=== PATIENT | male | born 1965 | race Caucasian/White ===

== ENCOUNTER 2016-12-09 11:33 | Emergency (ER) | payer BC, OTHER ==
[2016-12-09 11:42] VITALS: BP 131/93; PULSE 66; RESP 20; TEMP 97.7
--- NOTE | 2016-12-09 12:11 | ED ---
Lower Extremity Injury HPI - General Chief Complaint: Extremity Injury, Lower Stated Complaint: LEFT LEG INJURY Time Seen by Provider: 12/09/16 11:49 Source: patient, RN notes reviewed Mode of arrival: ambulatory Limitations: no limitations - History of Present Illness Initial Comments: This is a 51-year-old male who presents with complaints of left lower extremity injury 3 days ago. He states he was hit by a large piece of metal in the left leg he was seen at [facility] and x-rays were done which were negative for fracture. He is complaining of increased swelling and ecchymosis extending down to his foot. He also has some blistering noted to the anterior lateral inferior aspect of the arias. He was concerned about infection as there was an increased localized temperature in this area. Is some mild Discomfort no shortness of breath fevers chills sweats or other symptoms. 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 - Related Data Home Medications Medication Instructions Recorded Confirmed Acetaminophen Tab [Tylenol Tab] 1,000 mg PO Q6HR PRN 12/09/16 12/09/16 Previous Rx's Medication Instructions Recorded Amoxicillin/Potassium Clav 1 tab PO Q12HR #20 tab 12/09/16 [Augmentin 875-125 Tablet] EPINEPHrine [Epipen 2-Carl] 0.3 mg IM ONCE PRN #1 ml 12/09/16 Allergies Allergy/AdvReac Type Severity Reaction Status Date / Time corn Allergy Severe Swelling Verified 12/09/16 12:27 THROAT peanut Allergy Severe Swelling Verified 12/09/16 12:27 THROAT soy Allergy Unknown Verified 12/09/16 12:27 Review of Systems ROS Statement: Those systems with pertinent positive or pertinent negative responses have been documented in the HPI. ROS Other: All systems not noted in ROS Statement are negative. Past Medical History Past Medical History: No Reported History History of Any Multi-Drug Resistant Organisms: None Reported Past Surgical History: Hernia Repair, Orthopedic Surgery Additional Past Surgical History / Comment(s): Colonoscopy, bilateral knee scopes Past Psychological History: No Psychological Hx Reported Smoking Status: Never smoker Past Alcohol Use History: None Reported Past Drug Use History: None Reported General Exam - General Exam Comments Initial Comments: This is a well-developed well-nourished awake alert oriented times 3 male Limitations: no limitations General appearance: alert, in no apparent distress Head exam: Present: atraumatic, normocephalic, normal inspection Eye exam: Present: normal appearance, PERRL, EOMI. Absent: scleral icterus, conjunctival injection, periorbital swelling Neck exam: Present: normal inspection. Absent: tenderness, meningismus, lymphadenopathy Extremities exam: Present: full ROM, tenderness, normal capillary refill, other (Marked amount of ecchymosis noted over the entire left leg below the knee with edema noted. Minimal Discomfort to palpation there is blistering noted to the anterior lateral aspect of the distal leg with some minimal evidence a localized erythema and increased temperature. Ecchymosis does extend down to the lateral foot this area is nontender. Capillary refills less than 2 seconds) Neurological exam: Present: alert, oriented X3, CN II-XII intact Psychiatric exam: Present: normal affect, normal mood Skin exam: Present: warm, dry. Absent: normal color Course Vital Signs 12/09/16 11:39 Temperature 97.7 F Pulse Rate 66 Respiratory 20 Rate Blood Pressure 131/93 O2 Sat by Pulse 98 Oximetry - Reevaluation(s) Reevaluation #1: 12/09/16 12:11 The patient does have ALLERGIES to peanuts and soy he does state that his EpiPen has run out he will be prescribed a new prescription upon discharge Medical Decision Making - Medical Decision Making I did discuss findings with the patient has . Patient be discharged I did recommend elevation of his left leg at least 3-4 times a day above his heart he will be given an antibiotic prescription to be taken when necessary for any development of infection I also will give him a prescription for EpiPen No. 2. - Radiology Data Radiology results: report reviewed (I did review the ultrasound acute findings.) , image reviewed Disposition Clinical Impression: Contusion of left leg Disposition: HOME SELF-CARE Condition: Good Instructions: Contusion in Adults (ED) Prescriptions: Amoxicillin/Potassium Clav [Augmentin 875-125 Tablet] 1 tab PO Q12HR #20 tab EPINEPHrine [Epipen 2-Carl] 0.3 mg IM ONCE PRN #1 ml PRN Reason: Allergy Symptoms Referrals: Elías Lopez DO [Primary Care Provider] - 1-2 days Decision Time: 13:05
--- NOTE | 2016-12-09 13:03 | US ---
EXAMINATION TYPE: US venous doppler duplex LE LT DATE OF EXAM: 12/09/2016 12:51 PM COMPARISON: NONE CLINICAL HISTORY: Pain. Left leg pain SIDE PERFORMED: Left TECHNIQUE: The lower extremity deep venous system is examined utilizing real time linear array sonog tana with graded compression, doppler sonography and color-flow sonography. VESSELS IMAGED: External Iliac Vein (EIV) Common Femoral Vein Deep Femoral Vein Greater Saphenous Vein * Femoral Vein Popliteal Vein Small Saphenous Vein * Proximal Calf Veins (* superficial vessels) Left Leg: Negative for DVT IMPRESSION: Negative exam. No evidence of deep venous thrombosis in the left leg.
== END 2016-12-09 13:26 | disposition home or self-care (01) ==
LOC: EC 11:33
DX: S80.12XA Contusion of left lower leg, initial encounter (principal); S90.32XA Contusion of left foot, initial encounter; M79.89 Other specified soft tissue disorders; Z91.010 Allergy to peanuts; Z91.018 Allergy to other foods; W20.8XXA Other cause of strike by thrown, projected or falling object, initial encounter; Y92.009 Unspecified place in unspecified non-institutional (private) residence as the place of occurrence of the external cause
CPT/HCPCS: 99283

== ENCOUNTER 2017-03-04 08:51 | Emergency (ER) | payer BC, OTHER ==
[2017-03-04 08:55] VITALS: RESP 18
[2017-03-04] MEDS ORDERED: ASPIRIN 81 MG PO STA (09:10)
[2017-03-04] MEDS ORDERED: KETOROLAC 30 MG/ML 1 ML VIAL IVP STA (09:11)
--- NOTE | 2017-03-04 09:15 | ED ---
Chest Pain HPI - General Chief Complaint: Chest Pain Stated Complaint: CHEST PAIN Time Seen by Provider: 03/04/17 09:00 Source: patient, family, RN notes reviewed Mode of arrival: wheelchair Limitations: no limitations - History of Present Illness Initial Comments: This is a 51-year-old male with a benign past medical history was struck family history of heart disease who states he had the onset this morning around 3 to 3: 30 is sharp left-sided chest pain it was 78/10 severity in his since then about 5/10 in achy in nature. He has no cough fevers chills nausea vomiting sweats or other symptoms he states is persistent right and one area of his chest he points to the left upper anterior chest wall of the costal sternal COSTOCHONDRAL MARGIN. HE IS NOT SMOKER OR DRINKER HE DOES STATE HE WAS DOING SOME LIFTING AT WORK LAST NIGHT BUT NO MORE THAN ABOUT 20 POUNDS. 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 HE DOES STATE THAT AN OLDER BROTHER RECENTLY DID HAVE A HEART ATTACK. NOTHING SEEMS MAKE THE PAIN WORSE OR BETTER AT THIS TIME. MD Complaint: chest pain - Related Data Previous Rx's Medication Instructions Recorded EPINEPHrine [Epipen 2-Carl] 0.3 mg IM ONCE PRN #1 ml 12/09/16 Ibuprofen 800 mg PO Q6HR PRN #20 tablet 03/04/17 Allergies Allergy/AdvReac Type Severity Reaction Status Date / Time corn Allergy Severe Swelling Verified 03/04/17 10:03 THROAT peanut Allergy Severe Swelling Verified 03/04/17 10:03 THROAT soy Allergy Unknown Verified 03/04/17 10:03 Review of Systems ROS Statement: Those systems with pertinent positive or pertinent negative responses have been documented in the HPI. ROS Other: All systems not noted in ROS Statement are negative. EKG Findings - EKG Results: EKG: interpreted by ERMD, WNL, sinus rhythm, normal axis, normal QRS, normal ST/ T, no acute changes (Normal sinus rhythm a 61 appear of 01 58 QRS 96 QT since QTC of 14/412 st-t wave changes.) Past Medical History Past Medical History: No Reported History History of Any Multi-Drug Resistant Organisms: None Reported Past Surgical History: Hernia Repair, Orthopedic Surgery Additional Past Surgical History / Comment(s): Colonoscopy, bilateral knee scopes Past Psychological History: No Psychological Hx Reported Smoking Status: Never smoker Past Alcohol Use History: None Reported Past Drug Use History: None Reported General Exam - General Exam Comments Initial Comments: This is a well-developed well-nourished awake alert oriented 3 male Limitations: no limitations General appearance: alert, in no apparent distress Head exam: Present: atraumatic, normocephalic, normal inspection Eye exam: Present: normal appearance, PERRL, EOMI. Absent: scleral icterus, conjunctival injection, periorbital swelling ENT exam: Present: normal exam, mucous membranes moist Neck exam: Present: normal inspection. Absent: tenderness, meningismus, lymphadenopathy Respiratory exam: Present: normal lung sounds bilaterally, chest wall tenderness (Reproducible tenderness palpation along the left upper costochondral costal sternal angle this does seem to reproduce the patient's chief complaint). Absent: respiratory distress, wheezes, rales, rhonchi, stridor Cardiovascular Exam: Present: regular rate, normal rhythm, normal heart sounds. Absent: systolic murmur, diastolic murmur, rubs, gallop, clicks GI/Abdominal exam: Present: soft, normal bowel sounds. Absent: distended, tenderness, guarding, rebound, rigid Extremities exam: Present: normal inspection, full ROM, normal capillary refill. Absent: tenderness, pedal edema, joint swelling, calf tenderness Back exam: Present: normal inspection Neurological exam: Present: alert, oriented X3, CN II-XII intact Psychiatric exam: Present: normal affect, normal mood Skin exam: Present: warm, dry, intact, normal color. Absent: rash Course Vital Signs 03/04/17 03/04/17 08:52 09:55 Temperature 97.2 F L Pulse Rate 68 55 L Respiratory 18 18 Rate Blood Pressure 146/92 121/77 O2 Sat by Pulse 98 100 Oximetry Chest Pain MDM - MDM I did reevaluate patient several occasions he was showing improved. X-rays are negative for acute findings. The current presentation is consistent with costochondritis she will be discharged she will follow-up with his doctor did recommend an outpatient stress test due to his family history. Disposition Clinical Impression: Costalchondritis, Chest wall syndrome Disposition: HOME SELF-CARE Condition: Good Instructions: Costochondritis (ED) Prescriptions: Ibuprofen 800 mg PO Q6HR PRN #20 tablet PRN Reason: Pain Referrals: Elías Lopez DO [Primary Care Provider] - 1-2 days
[2017-03-04 09:25] LABS: Basophils % (A) 0 %; CH 33.7; CHCM 34.9; Eosinophils # (A) 0.1 k/uL (0-0.7); Eosinophils % (A) 2 %; HCT 43.6 % (39.0-53.0); HDW 2.62; HGB 14.8 gm/dL (13.0-17.5); Luc # (Auto) 0.08; Luc % (Auto) 2; Lymphocytes # (A) 1.2 k/uL (1.0-4.8); Lymphocytes % (A) 30 %; MCH 32.9 pg (25.0-35.0); MCHC 33.9 g/dL (31.0-37.0); MCV 96.9 fL (80.0-100.0); Mean Platelet Volume 7.6; Monocytes # (A) 0.3 k/uL (0-1.0); Monocytes % (A) 9 %; Neutrophils # (A) 2.2 k/uL (1.3-7.7); Neutrophils % (A) 57 %; RDW 13.8 % (11.5-15.5); WBC 3.9 k/uL (3.8-10.6); WBC (Perox) 4.11
[2017-03-04 09:34] LABS: ALT 31 U/L (21-72); AST 21 U/L (17-59); Alkaline Phosphatase 64 U/L (38-126); Anion Gap 10 mmol/L; Blood Urea Nitrogen 20 mg/dL (9-20); Calcium 9.1 mg/dL (8.4-10.2); Carbon Dioxide 23 mmol/L (22-30); Chloride 108 mmol/L (98-107); Glucose 99 mg/dL (74-99); Magnesium 2.1 mg/dL (1.6-2.3); Non-African American GFR(MDRD) >60 (>60 ml/min/1.73 sqM); Potassium 4.6 mmol/L (3.5-5.1); Sodium 141 mmol/L (137-145); Total Bilirubin 0.4 mg/dL (0.2-1.3); Total Protein 6.9 g/dL (6.3-8.2)
--- NOTE | 2017-03-04 09:38 | XR ---
EXAMINATION TYPE: XR chest 2V DATE OF EXAM: 03/04/2017 HISTORY: Chest Pain. REFERENCE: NONE. FINDINGS: There is minimal atelectasis at the left lung base. The lungs are otherwise clear. Pleural spaces are clear. The heart is not enlarged. IMPRESSION: PLATELIKE ATELECTASIS, LEFT LUNG BASE.
[2017-03-04 09:44] LABS: Creatine Kinase 82 U/L (55-170)
[2017-03-04 09:57] LABS: Troponin I <0.012 ng/mL (0.000-0.034)
[2017-03-04 10:00] LABS: INR 1.1 (<1.2); Partial Thromboplastin Time 24.9 sec (22.0-30.0); Prothrombin Time 11.3 sec (9.0-12.0)
[2017-03-04 10:52] VITALS: BP 118/82; PULSE 54
[2017-03-04 10:56] VITALS: TEMP 98
== END 2017-03-04 10:56 | disposition home or self-care (01) ==
LOC: EC 08:51
DX: M94.0 Chondrocostal junction syndrome [Tietze] (principal); R07.1 Chest pain on breathing; Z91.010 Allergy to peanuts; Z91.018 Allergy to other foods
CPT/HCPCS: 36415; 93005; 85379; 83880; 80053; 82550; 82553; 83735; 84484; 85025; 85610; 85730; 71020; 99285; 96374; J1885

== ENCOUNTER 2018-08-14 12:19 | Emergency (ER) | payer BC, OTHER ==
[2018-08-14 12:29] VITALS: BP 140/86; PULSE 62; RESP 18; TEMP 98.2
[2018-08-14] MEDS ORDERED: SODIUM CHLORIDE 0.9% 500 ML 500 ML IV STA ×2 (13:05→15:17)
--- NOTE | 2018-08-14 13:10 | ED ---
General Adult HPI - General Chief complaint: Neuro Symptoms/Deficit Stated complaint: Face numbness/blurred vision Time Seen by Provider: 08/14/18 12:52 Source: patient, RN notes reviewed Mode of arrival: ambulatory Limitations: no limitations - History of Present Illness Initial comments: 52-year-old with only significant past medical history being severe ALLERGIES to Court peanuts and soy presents to the emergency department for a chief complaint of right-sided facial numbness. Patient states this has been going on for about 1.5 days. This started on the evening of August 12. Patient thought it was related to ALLERGIES as he has had facial numbness from ALLERGIES before. However when he went to the clinic today they became concerned. Patient denies noticing any weakness in the face. Denies any pain in the right ear preceding this. Denies any weakness in the arms or legs. No difficulty walking. No previous neurologic events. No cardiac events. Patient has no other complaints at this time including shortness of breath, chest pain, abdominal pain, nausea or vomiting, headache, or visual changes. - Related Data Home Medications Medication Instructions Recorded Confirmed Acetaminophen Tab [Tylenol Tab] 1,000 mg PO Q6HR PRN 08/14/18 08/14/18 Loratadine [Claritin] 10 mg PO DAILY PRN 08/14/18 08/14/18 Previous Rx's Medication Instructions Recorded EPINEPHrine [Epipen 2-Carl] 0.3 mg IM ONCE PRN #1 ml 12/09/16 Allergies Allergy/AdvReac Type Severity Reaction Status Date / Time corn Allergy Severe Swelling Verified 08/14/18 12:50 THROAT peanut Allergy Severe Swelling Verified 08/14/18 12:50 THROAT soy Allergy Unknown Verified 08/14/18 12:50 Review of Systems ROS Statement: Those systems with pertinent positive or pertinent negative responses have been documented in the HPI. ROS Other: All systems not noted in ROS Statement are negative. Past Medical History Past Medical History: No Reported History History of Any Multi-Drug Resistant Organisms: None Reported Past Surgical History: Hernia Repair, Orthopedic Surgery Additional Past Surgical History / Comment(s): Colonoscopy, bilateral knee scopes Past Psychological History: No Psychological Hx Reported Smoking Status: Never smoker Past Alcohol Use History: None Reported Past Drug Use History: None Reported General Exam Limitations: no limitations General appearance: alert, in no apparent distress Head exam: Present: atraumatic, normocephalic, normal inspection Eye exam: Present: normal appearance, PERRL, EOMI. Absent: scleral icterus, co njunctival injection, periorbital swelling ENT exam: Present: normal exam, normal oropharynx, mucous membranes moist, TM's normal bilaterally, normal external ear exam Neck exam: Present: normal inspection, full ROM. Absent: tenderness, meningismus, lymphadenopathy Respiratory exam: Present: normal lung sounds bilaterally. Absent: respiratory distress, wheezes, rales, rhonchi, stridor Cardiovascular Exam: Present: regular rate, normal rhythm, normal heart sounds. Absent: systolic murmur, diastolic murmur, rubs, gallop, clicks Neurological exam: Present: alert, oriented X3, CN II-XII intact Expanded Patient oriented to: Present: person, place, time Speech: Present: fluid speech Cranial nerves: EOM's Intact: Normal, Tongue Deviation: Normal, Nystagmus: Normal, Facial Sensation: Abnormal Right, Facial Palsy with Forehead Movement: Normal (flatting of nasolabial fold) Cerebellar function: Romberg: Normal Upper motor neuron: Pronator Drift: Normal Sensory exam: Upper Extremity Light Touch: Normal, Upper Extremity Pin Prick: Normal, Lower Extremity Light Touch: Normal, Lower Extremity Pin Prick: Normal Motor strength exam: RUE: 5, LUE: 5, RLE: 5, LLE: 5 Eye Response: (4) open spontaneously Motor Response: (6) obeys commands Verbal Response: (5) oriented Baker Total: 15 Psychiatric exam: Present: normal affect, normal mood Course Vital Signs 08/14/18 12:25 Temperature 98.2 F Pulse Rate 62 Respiratory 18 Rate Blood Pressure 140/86 O2 Sat by Pulse 97 Oximetry EKG Findings - EKG Comments: EKG Findings:: Ventricular rate 60, unusual P axis, [place] interval 158, QRS duration 90, QTC 392 Medical Decision Making - Medical Decision Making 52-year-old male without any significant past medical history presents to the emergency department for a chief complaint of right-sided facial numbness. Patient states this has been going on for about 1.5 days and started the evening of August 12. Patient states he has had similar symptoms before from severe ALLERGIES but states that this has lasted much longer than normal. On exam patient does have decreased sensation to light touch and pinprick sensation of the face. Patient also has flattening of the nasolabial fold. Patient has spared motor distribution of the forehead. NIH 2 due to decreased facial sensation and flattened nasolabial fold. EKG shows ventricular rate of 60 with a sinus rhythm. CBC CMP unremarkable. Urine negative. Troponin negative. Chest x-ray shows no acute process. CT shows a normal brain. CTA head and neck shows no significant flow-limiting stenosis. Normal [place]. As there is concern for neuro deficit and strokelike symptoms patient will be transferred for neurologic management. This was accepted by Dr. Mendoza. - Lab Data Result diagrams: 08/14/18 13:40 08/14/18 13:40 Lab Results 08/14/18 08/14/18 08/14/18 Range/Units 13:40 13:40 13:40 WBC 4.2 (3.8-10.6) k/uL RBC 4.54 (4.30-5.90) m/uL Hgb 15.0 (13.0-17.5) gm/dL Hct 43.6 (39.0-53.0) % MCV 95.9 (80.0-100.0) fL MCH 33.1 (25.0-35.0) pg MCHC 34.5 (31.0-37.0) g/dL RDW 12.5 (11.5-15.5) % Plt Count 203 (150-450) k/uL Neutrophils % 69 % Lymphocytes % 21 % Monocytes % 6 % Eosinophils % 2 % Basophils % 1 % Neutrophils # 2.9 (1.3-7.7) k/uL Lymphocytes # 0.9 L (1.0-4.8) k/uL Monocytes # 0.2 (0-1.0) k/uL Eosinophils # 0.1 (0-0.7) k/uL Basophils # 0.0 (0-0.2) k/uL PT 11.0 (9.0-12.0) sec INR 1.0 (<1.2) APTT 24.3 (22.0-30.0) sec Sodium 140 (137-145) mmol/L Potassium 4.3 (3.5-5.1) mmol/L Chloride 108 H (98-107) mmol/L Carbon Dioxide 27 (22-30) mmol/L Anion Gap 5 mmol/L BUN 21 H (9-20) mg/dL Creatinine 0.71 (0.66-1.25) mg/dL Est GFR (CKD-EPI)AfAm >90 (>60 ml/min/1.73 sqM) Est GFR (CKD-EPI)NonAf >90 (>60 ml/min/1.73 sqM) Glucose 88 (74-99) mg/dL Calcium 9.3 (8.4-10.2) mg/dL Total Bilirubin 0.5 (0.2-1.3) mg/dL AST 17 (17-59) U/L ALT 27 (21-72) U/L Alkaline Phosphatase 54 (38-126) U/L Troponin I (0.000-0.034) ng/mL Total Protein 6.2 L (6.3-8.2) g/dL Albumin 4.0 (3.5-5.0) g/dL Urine Color Urine Appearance (Clear) Urine pH (5.0-8.0) Ur Specific [place] (1.001-1.035) Urine Protein (Negative) Urine Glucose (UA) (Negative) Urine Ketones (Negative) Urine Blood (Negative) Urine Nitrite (Negative) Urine Bilirubin (Negative) Urine Urobilinogen (<2.0) mg/dL Ur Leukocyte Esterase (Negative) Amorphous Sediment (None) /hpf Urine Mucus (None) /hpf 08/14/18 08/14/18 Range/Units 13:40 13:40 WBC (3.8-10.6) k/uL RBC (4.30-5.90) m/uL Hgb (13.0-17.5) gm/dL Hct (39.0-53.0) % MCV (80.0-100.0) fL MCH (25.0-35.0) pg MCHC (31.0-37.0) g/dL RDW (11.5-15.5) % Plt Count (150-450) k/uL Neutrophils % % Lymphocytes % % Monocytes % % Eosinophils % % Basophils % % Neutrophils # (1.3-7.7) k/uL Lymphocytes # (1.0-4.8) k/uL Monocytes # (0-1.0) k/uL Eosinophils # (0-0.7) k/uL Basophils # (0-0.2) k/uL PT (9.0-12.0) sec INR (<1.2) APTT (22.0-30.0) sec Sodium (137-145) mmol/L Potassium (3.5-5.1) mmol/L Chloride (98-107) mmol/L Carbon Dioxide (22-30) mmol/L Anion Gap mmol/L BUN (9-20) mg/dL Creatinine (0.66-1.25) mg/dL Est GFR (CKD-EPI)AfAm (>60 ml/min/1.73 sqM) Est GFR (CKD-EPI)NonAf (>60 ml/min/1.73 sqM) Glucose (74-99) mg/dL Calcium (8.4-10.2) mg/dL Total Bilirubin (0.2-1.3) mg/dL AST (17-59) U/L ALT (21-72) U/L Alkaline Phosphatase (38-126) U/L Troponin I <0.012 (0.000-0.034) ng/mL Total Protein (6.3-8.2) g/dL Albumin (3.5-5.0) g/dL Urine Color Yellow Urine Appearance Cloudy (Clear) Urine pH 6.5 (5.0-8.0) Ur Specific [place] 1.024 (1.001-1.035) Urine Protein Negative (Negative) Urine Glucose (UA) Negative (Negative) Urine Ketones Negative (Negative) Urine Blood Negative (Negative) Urine Nitrite Negative (Negative) Urine Bilirubin Negative (Negative) Urine Urobilinogen 2.0 (<2.0) mg/dL Ur Leukocyte Esterase Negative (Negative) Amorphous Sediment Few H (None) /hpf Urine Mucus Rare H (None) /hpf - Radiology Data Radiology results: report reviewed, image reviewed Chest x-ray shows no acute cardiopulmonary process. Disposition Clinical Impression: Focal neurological deficit Disposition: OTHER INSTITUTION NOT DEFINED Condition: Fair Is patient prescribed a controlled substance at d/c from ED?: No Referrals: Elías Lopez DO [Primary Care Provider] - 1-2 days Time of Disposition: 15:22 - Out of Hospital Transfer - Req. Specs Out of Hospital Transfer - Requested Specifics: Other Emergency Center ([facility]
[2018-08-14 14:04] LABS: Basophils % (A) 1 %; Eosinophils # (A) 0.1 k/uL (0-0.7); Eosinophils % (A) 2 %; HCT 43.6 % (39.0-53.0); Lymphocytes # (A) 0.9 k/uL (1.0-4.8); Lymphocytes % (A) 21 %; MCH 33.1 pg (25.0-35.0); MCHC 34.5 g/dL (31.0-37.0); MCV 95.9 fL (80.0-100.0); Monocytes # (A) 0.2 k/uL (0-1.0); Monocytes % (A) 6 %; Neutrophils # (A) 2.9 k/uL (1.3-7.7); Neutrophils % (A) 69 %; Platelet Count 203 k/uL (150-450); RBC 4.54 m/uL (4.30-5.90); RDW 12.5 % (11.5-15.5); WBC 4.2 k/uL (3.8-10.6)
[2018-08-14 14:09] LABS: ALT 27 U/L (21-72); AST 17 U/L (17-59); Alkaline Phosphatase 54 U/L (38-126); Anion Gap 5 mmol/L; Blood Urea Nitrogen 21 mg/dL (9-20); Calcium 9.3 mg/dL (8.4-10.2); Carbon Dioxide 27 mmol/L (22-30); Chloride 108 mmol/L (98-107); Glucose 88 mg/dL (74-99); Potassium 4.3 mmol/L (3.5-5.1); Sodium 140 mmol/L (137-145); Total Bilirubin 0.5 mg/dL (0.2-1.3); Total Protein 6.2 g/dL (6.3-8.2)
[2018-08-14 14:13] LABS: Partial Thromboplastin Time 24.3 sec (22.0-30.0)
[2018-08-14 14:19] LABS: Amorphous Sediment,Urine Few /hpf; Appearance,Urine Cloudy (Clear); Bilirubin,Urine Negative (Negative); Blood,Urine Negative (Negative); Color,Urine Yellow; Glucose,Urine (UA) Negative (Negative); Ketones,Urine Negative (Negative); Leukocyte Esterase,Urine Negative (Negative); Mucus,Urine Rare /hpf; Nitrite,Urine Negative (Negative); PH, Urine 6.5 (5.0-8.0); Protein,Urine Negative (Negative); Specific Gravity,Urine 1.024 (1.001-1.035)
--- NOTE | 2018-08-14 14:29 | XR ---
EXAMINATION TYPE: XR chest 2V DATE OF EXAM: 08/14/2018 COMPARISON: 03/04/2017 HISTORY: Altered mental status TECHNIQUE: Frontal and lateral views of the chest are obtained. FINDINGS: There is improved aeration of the left lung base in comparison to the prior. There is no f ocal air space opacity, pleural effusion, or pneumothorax seen. The cardiac silhouette size is withi n normal limits. The osseous structures are intact. IMPRESSION: Resolved left basilar subsegmental atelectasis. No acute cardiopulmonary process.
--- NOTE | 2018-08-14 14:31 | CT ---
EXAMINATION TYPE: CT brain wo con DATE OF EXAM: 08/14/2018 COMPARISON: None INDICATION: Rt facial numbness for 2 days DLP: 1036 mGycm, Automated exposure control for dose reduction was used. CONTRAST: None CT of the brain is performed utilizing 3 mm thick sections through the posterior fossa and 3 mm thick sections through the remaining calvarium. Study is performed within 24 hours of arrival to the hosp [facility]. No abnormal hyperdensity is present to suggest an acute intracranial hemorrhage. No mass lesion is evident. No acute infarcts are evident. Ventricles and sulci are appropriate for the patient age. Paranasal sinuses and mastoid air cells within the [id number] are clear. IMPRESSIONS: 1. Normal CT Brain
--- NOTE | 2018-08-14 14:37 | CT ---
EXAMINATION TYPE: CT angio head neck DATE OF EXAM: 08/14/2018 HISTORY: Rt facial numbness for 2 days COMPARISON: None CT DLP: 433.4 mGycm. Automated Exposure Control for Dose Reduction was Utilized. TECHNIQUE: CTA scan of the neck is performed with IV Contrast, patient injected with 65 mL of Isovue 370, axial images are obtained, coronal and sagittal reformatted images are reviewed. Three-D recons tructed images are created on an independent workstation and reviewed. FINDINGS: Carotid/Vascular Structures: Carotid bifurcations appear normal without significant stenosis. No foca l narrowing is evident. Vertebral arteries are codominant. No significant flow-limiting stenosis is e vident. The left and right common carotid arteries may have a common origin within the innominate. [place]: Internal carotid arteries bifurcate normally into A1 and M1 segments. The anterior communicating artery appears patent. A2 segments are unremarkable. Middle cerebral artery branches ap pear unremarkable bilaterally. Posterior communicating arteries are patent. Posterior cerebral arteri es appear normal. Vertebral basilar system appears normal. IMPRESSION: 1. No significant flow-limiting stenosis bilateral carotid bifurcations. 2. Normal [place].
== END 2018-08-14 16:13 | disposition other institution (70) ==
LOC: EC 12:19
DX: R29.818 Other symptoms and signs involving the nervous system (principal); R20.0 Anesthesia of skin; Z91.018 Allergy to other foods; Z91.010 Allergy to peanuts
CPT/HCPCS: 36415; 93005; 80053; 84484; 85025; 85610; 85730; 81001; 71046; 70496; 70450; 70498; 99285; 96360; 96361; Q9967

== ENCOUNTER → 2018-11-14 | Outpatient (CLI) | payer OTHER ==
--- NOTE | 2018-11-14 08:42 | US ---
EXAMINATION TYPE: US bladder DATE OF EXAM: 11/14/2018 COMPARISON: NONE CLINICAL HISTORY: R35.0 urinary frequency. EXAM MEASUREMENTS: Post Void Residual Volume: 16.2 mL Color Doppler performed to assess ureteral jets. Bilateral Jets seen: Yes Normal Post Void Residual (less than 50ml): Yes Enlarged heterogenous prostate visualized measuring 4.6 cm. IMPRESSION: Enlarged and heterogenous prostate gland impressing upon the urinary bladder. No abnorma l post void residual is seen within the urinary bladder.
== END | disposition home or self-care (01) ==
LOC: RADUSWWP 07:13
PROVIDERS: ATTEND Family Medicine
DX: N40.1 Benign prostatic hyperplasia with lower urinary tract symptoms (principal); R35.0 Frequency of micturition
CPT/HCPCS: 76857

== ENCOUNTER → 2018-12-16 | Outpatient (CLI) | payer OTHER ==
--- NOTE | 2018-12-17 13:25 | MR ---
EXAMINATION TYPE: MR brain wo/w con DATE OF EXAM: 12/16/2018 COMPARISON: CT brain dated 08/14/[address] [facility] head and neck dated 08/14/2018 HISTORY: diplopia TECHNIQUE: Multiplanar, multisequence images of the brain and brainstem is performed without and with IV contras t, utilizing 7.5 mL intravenous Gadavist . FINDINGS: Diffusion weighted images demonstrate no evidence of a recent infarct or other diffusion ab normality. There is no extra-axial fluid collection. There are few punctate scattered foci of T2/FLA IR hyperintensity within the deep white matter. These are typically sequela of chronic microangiopath y. The ventricular system and cisternal spaces are normal in size and appearance. The brain volume i s age appropriate. 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 Pituitary gland is unremarkable. No impression on the optic chiasm. No orbital nerve enhancement. M ild nasal turbinate mucosal hypertrophy of the left middle and inferior nasal turbinates although no obstruction is seen. Midline structures demonstrate normal morphology. The craniocervical junction a ppears within normal limits. Post contrast images demonstrate no abnormal enhancement. The dural maynor ous sinuses appear patent. Scant amount of mucosal thickening is seen within the posterior left ethmo id sinuses. The remaining visualized sinuses are clear and the globes are intact. The globes appear elongated in transverse dimension bilaterally having an atypical ovoid shape rather than a normal rounded configuration. No abnormal enhancement or intra-abdominal mass. No significant perineural fluid along the optic nerves. IMPRESSION: 1. Atypical transversely elongated shape of the bilateral globes appearing ovoid in this patient with diplopia. Ophthalmologic exam is recommended. No focal staphyloma or intra-abdominal mass is seen. 2. Few scattered foci of nonspecific white matter change in the deep white matter, most commonly on t he basis of microangiopathy. These are not in a typical distribution of demyelinating disease. 3. No abnormal intracranial enhancement, midline shift, nor acute territorial infarct.
== END | disposition home or self-care (01) ==
LOC: RADMRIMAIN 11:56
PROVIDERS: ATTEND Family Medicine
DX: H53.2 Diplopia (principal); I73.9 Peripheral vascular disease, unspecified; R90.89 Other abnormal findings on diagnostic imaging of central nervous system
CPT/HCPCS: 70553; A9585

== ENCOUNTER → 2019-07-09 | Outpatient (CLI) | payer OTHER ==
--- NOTE | 2019-07-09 11:55 | XR ---
Lumbar spine HISTORY: Low back pain 3 views of lumbar spine Lumbar vertebral bodies show preserved height, alignment, and bone mineralization. There is multileve l spondylosis. Loss of disc height present at L3-4, L4-5. Sclerosis present in the posterior elements of the posterior lumbar sacral junction. IMPRESSION: Degenerative disc disease and facet arthropathy.
== END | disposition home or self-care (01) ==
LOC: RADXRMAIN 10:33
PROVIDERS: ATTEND Family Medicine
DX: M51.36 Other intervertebral disc degeneration, lumbar region (principal); M47.816 Spondylosis without myelopathy or radiculopathy, lumbar region
CPT/HCPCS: 72100

== ENCOUNTER → 2019-09-18 | Outpatient (CLI) | payer OTHER ==
--- NOTE | 2019-09-18 15:52 | CT ---
EXAMINATION TYPE: CT pelvis w con DATE OF EXAM: 09/18/2019 COMPARISON: NONE HISTORY: 53-year-old male left side femoral hernia, history of prior hernias TECHNIQUE: Contiguous axial scanning of the pelvis following administration of 100 ml Isovue 300 IV c ontrast. Delayed images through the bladder and coronal/sagittal reconstructions performed. CT DLP: 462.1 mGycm Automated exposure control for dose reduction was used. FINDINGS: Visualized portion of the inferior right liver lobe, portion of the gallbladder, lower poles of the k idneys show no gross abnormality. No dilated small bowel, free fluid, or free air. In the mid and lower abdomen and pelvis, no lymphadenopathy is identified. Normal appendix. Mild overall stool burden. There is proximal to mid sigmoid diverticulosis noted. Mi ld circumferential thickening along the proximal sigmoid colon without surrounding inflammation. Mild circumferential bladder wall thickening. Prostate gland measures 4.7 cm wide with central calcif ications. No inguinal or femoral canal hernia is identified on this nondynamic scan. Phleboliths in the left side of the pelvis. No abnormal fluid collection in the pelvis. Bones: No osseous destructive process. IMPRESSION: 1. NO FEMORAL CANAL OR INGUINAL HERNIA IDENTIFIED ON THIS NONDYNAMIC EXAM. 2. MILD PROSTATOMEGALY AT 4.7 CM WIDE. MILD CIRCUMFERENTIAL BLADDER WALL THICKENING COULD REPRESENT C HRONIC BLADDER WALL HYPERTROPHY OR CYSTITIS. CLINICALLY CORRELATE.
== END | disposition home or self-care (01) ==
LOC: RADCTMAIN 12:38
PROVIDERS: ATTEND Family Medicine
DX: N40.0 Benign prostatic hyperplasia without lower urinary tract symptoms (principal); N32.89 Other specified disorders of bladder
CPT/HCPCS: 72193

== ENCOUNTER → 2020-10-12 | Outpatient (CLI) | payer OTHER ==
[2020-10-12 16:53] LABS: Basophils % (A) 0 %; Eosinophils # (A) 0.2 k/uL (0-0.7); Eosinophils % (A) 4 %; HCT 41.7 % (39.0-53.0); Lymphocytes # (A) 1.4 k/uL (1.0-4.8); Lymphocytes % (A) 26 %; MCH 33.9 pg (25.0-35.0); MCHC 36.1 g/dL (31.0-37.0); MCV 93.9 fL (80.0-100.0); Mean Platelet Volume 7.1; Monocytes # (A) 0.4 k/uL (0-1.0); Monocytes % (A) 7 %; Neutrophils # (A) 3.3 k/uL (1.3-7.7); Neutrophils % (A) 61 %; Platelet Count 234 k/uL (150-450); RBC 4.44 m/uL (4.30-5.90); RDW 12.2 % (11.5-15.5); WBC 5.4 k/uL (3.8-10.6)
[2020-10-12 17:08] LABS: Potassium 4.1 mmol/L (3.5-5.1)
== END | disposition home or self-care (01) ==
LOC: LABPAT 16:22
PROVIDERS: ATTEND Orthopaedic Surgery
DX: Z01.818 Encounter for other preprocedural examination (principal); M23.92 Unspecified internal derangement of left knee; R94.31 Abnormal electrocardiogram [ECG] [EKG]; R00.1 Bradycardia, unspecified
CPT/HCPCS: 36415; 80051; 85025; 93005

== ENCOUNTER 2020-10-21 12:09 | Day surgery (SDC) | payer OTHER ==
[2020-10-20 08:45] VITALS: BMI 26.1
--- NOTE | 2020-10-20 20:42 | HP ---
HISTORY AND PHYSICAL DATE OF SURGERY: 10/21/2020 Albert Yarbrough is a 54-year-old gentleman seen with progressive left knee pain. After having treatment options discussed, he elected to proceed with arthroscopy. Consent regarding the procedure was obtained. PAST MEDICAL HISTORY: Noncontributory. PAST SURGICAL HISTORY: Noncontributory. DAILY MEDICATIONS: None. ALLERGIES: None. SOCIAL HISTORY: Denies tobacco use. PHYSICAL EVALUATION OF THE LEFT KNEE: Range of motion 0 to 130. Mild effusion. Tenderness medial joint line. Positive medial Henrik's. +1 Brandi's, good endpoint. Collateral ligaments stable. Distal neurovascular exam intact. RADIOGRAPHS: Radiographs of his left knee reveal mild osteoarthritis. MRI left knee revealed a partial ACL tear, abnormal signal in the medial meniscus and joint effusion. IMPRESSION: Internal derangement left knee with partial ACL tear and possible meniscal tear. PLAN: Left knee arthroscopy with debridement, partial ACL tear and possible partial meniscectomy. MMODL / IJN: [id number] /
[~2020-10-21 12:09] MED LIST: DEXAMETHASONE SOD PHOSPHATE 4 MG/ML 1 ML VIAL IV ONE; LACTATED RINGERS 1,000 ML IV SCH; LIDOCAINE 1% (10MG/ML) FOR IV START INTRADERMA PRN
[2020-10-21] MEDS ORDERED: ONDANSETRON 4 MG/2 ML VIAL ONE (12:28)
[2020-10-21] MEDS: ONDANSETRON 4 MG/2 ML VIAL IVP ONE ×2 (12:37→14:51)
[2020-10-21] MEDS ORDERED: PROPOFOL 10 MG/ML 20 ML VIAL IV ONE (12:54)
[2020-10-21] MEDS ORDERED: MIDAZOLAM 2 MG/2 ML VIAL ONE (12:54)
[2020-10-21] MEDS ORDERED: LIDOCAINE 1% INJ 10MG/ML (20 ML MDV) ONE (12:54)
[2020-10-21] MEDS ORDERED: BUPIVACAINE (PF) 0.25% 30 ML VIAL SQ ONE ×2 (12:54→13:28)
[2020-10-21] MEDS ORDERED: fentaNYL (PF) 50 MCG/ML 2 ML AMP ONE (12:54)
[2020-10-21] MEDS ORDERED: KETOROLAC 15 MG/ML 1 ML VIAL ONE (12:54)
[2020-10-21 13:38] VITALS: TEMP 97
--- NOTE | 2020-10-21 13:40 | P.OP ---
Date of Procedure: 10/21/20 Preoperative Diagnosis: Internal derangement left knee Postoperative Diagnosis: 1. Tear medial meniscus left knee 2. ACL tear left knee 3. Reactive synovitis medial, lateral and suprapatellar compartments left knee Procedure(s) Performed: 1. Arthroscopic partial medial meniscectomy left knee 2. Arthroscopic debridement complete ACL tear left knee 3. Arthroscopic partial synovectomy medial, lateral and suprapatellar compartments left knee Anesthesia: RUIZA, local Surgeon: Ashish Johnston Estimated Blood Loss (ml): 7 Pathology: none sent Condition: stable Disposition: PACU Indications for Procedure: 54-year-old gentleman seen with progressive left knee pain. After having treatment options discussed, he elected to proceed with arthroscopy. Operative Findings: See description of procedure Description of Procedure: Patient was taken to the operative suite. Patient underwent a general anesthetic by the department of anesthesia. Patient was given preoperative antibiotics. The left lower extremity was placed in a well-padded arthroscopic leg briones. The left leg was prepped and draped in the normal sterile orthopedic fashion. A lateral parapatellar and suprapatellar incision was made. Trochars were inserted. Arthroscopy was initiated. Suprapatellar pouch revealed diffuse thick reactive synovitis. The patellofemoral joint appeared appeared to articulate congruently. There was no chondromalacia present. The scope was guided into the medial gutter. No loose bodies or plica were identified. The scope was then guided into the medial compartment. A medial parapatellar incision was made. Trocar inserted followed by probe. There was a tear involving the posterior horn of the medial meniscus. There was mild grade 1 chondromalacia of the medial compartment. There was thick reactive synovitis anteriorly. I performed a partial medial meniscectomy getting down to stable meniscal tissue. I performed a partial synovectomy decompressing the thick reactive synovitis. The shaver was removed. There was good decompression of the synovitis. The residual meniscus was stable. Scope and probe were then guided into the intercondylar notch. There was an ACL tear present. It appeared to be a complete ACL tear with a vacant lateral wall sign. I introduced a motorized shaver and debrided out the torn ACL. The PCL was probed and was found to be stable. Intraoperatively the patient was unstable with this complete ACL tear. The scope and probe were then guided into lateral compartment. The lateral meniscus was probed and was found to be stable. There was no chondromalacia. There was some reactive synovitis anteriorly. I introduced a motorized shaver and performed a partial synovectomy. The shaver was removed. There was good decompression of the synovitis. The scope was in guided back into the suprapatellar compartment. I introduced a motorized shaver into the super patellar compartment. I debrided out some piecemeal fragments of meniscus I encountered. I performed a partial synovectomy decompressing the thick reactive synovitis throughout the suprapatellar compartment. The shaver was removed. There appeared be good decompression of the synovitis. I took one more look on the entire knee, no residual debris. Instruments were now removed from the joint. The joint was infiltrated with .25% Marcaine. Steri-Strips were applied to the portal sites. Sterile dressings were applied. The patient was placed into a SEYMOUR hose. No tourniquet was utilized. The patient was awakened, transferred to a bed and taken to recovery stable satisfactory condition.
[2020-10-21 13:49] VITALS: RESP 16
[2020-10-21] MEDS: HYDROmorphone 0.5 MG/0.5 ML SYRINGE IVP ONE ×2 (13:59→14:08)
[2020-10-21] MEDS: fentaNYL (PF) 50 MCG/ML 2 ML AMP IVP ONE ×2 (14:19→14:31)
[2020-10-21] MEDS ORDERED: fentaNYL (PF) 50 MCG/ML 2 ML AMP IVP ONE (14:19)
[2020-10-21] MEDS ORDERED: HYDROcodone/APAP 5-325MG 1 EACH TAB ONE (15:22)
[2020-10-21] MEDS ORDERED: HYDROcodone/APAP 5-325MG 1 EACH TAB PO ONE (15:24)
[2020-10-21] MEDS ORDERED: PROMETHAZINE INJ 25 MG/ML 1 ML VIAL IVPB ONE (15:56)
[2020-10-21 17:09] VITALS: BP 127/77; PULSE 63
== END 2020-10-21 18:03 | disposition home or self-care (01) ==
LOC: OR 12:09
PROVIDERS: ATTEND Orthopaedic Surgery
DX: M23.204 Derangement of unspecified medial meniscus due to old tear or injury, left knee (principal); S83.512A Sprain of anterior cruciate ligament of left knee, initial encounter; X58.XXXA Exposure to other specified factors, initial encounter; M65.9 Synovitis and tenosynovitis, unspecified; Z98.890 Other specified postprocedural states; Z91.010 Allergy to peanuts; Z91.018 Allergy to other foods
CPT/HCPCS: 29881; 29888; J2250; J1100; J2550; J0690; J2405; J2001; J3010; J1885; J2704; J1170

== ENCOUNTER → 2020-12-10 | Outpatient (CLI) | payer OTHER ==
[2020-12-10 12:43] LABS: Basophils % (A) 0 %; Eosinophils # (A) 0.1 k/uL (0-0.7); Eosinophils % (A) 2 %; HCT 43.9 % (39.0-53.0); HGB 15.2 gm/dL (13.0-17.5); Lymphocytes % (A) 24 %; MCH 33.8 pg (25.0-35.0); MCHC 34.6 g/dL (31.0-37.0); MCV 97.6 fL (80.0-100.0); Mean Platelet Volume 7.9; Monocytes # (A) 0.3 k/uL (0-1.0); Monocytes % (A) 6 %; Neutrophils # (A) 2.8 k/uL (1.3-7.7); Neutrophils % (A) 65 %; Platelet Count 178 k/uL (150-450); RDW 12.7 % (11.5-15.5); WBC 4.3 k/uL (3.8-10.6)
== END | disposition home or self-care (01) ==
LOC: LABPAT 10:50
PROVIDERS: ATTEND Orthopaedic Surgery
DX: Z01.812 Encounter for preprocedural laboratory examination (principal); M23.92 Unspecified internal derangement of left knee
CPT/HCPCS: 36415; 80051; 85025

== ENCOUNTER 2020-12-23 08:10 | Day surgery (SDC) | payer OTHER ==
[2020-12-17 14:38] VITALS: BMI 26.7
--- NOTE | 2020-12-22 17:37 | HP ---
HISTORY AND PHYSICAL DATE OF SURGERY: 12/23/2020 Esau Yarbrough is a 55-year-old gentleman seen with left knee instability with history of ACL tear. We discussed options regarding treatment with him. He elected to proceed with left knee arthroscopy to include allograft ACL reconstruction. Consent regarding the procedure was obtained. PAST MEDICAL HISTORY: Noncontributory. PAST SURGICAL HISTORY: Left knee arthroscopy. MEDICATIONS: Tylenol. ALLERGIES: None. SOCIAL HISTORY: Denies tobacco use. PHYSICAL EVALUATION OF THE LEFT KNEE: Range of motion is 0-125. He has no tenderness along the joint line areas. He has a +2/3 Brandi with soft endpoint. Pivot shift is positive. Collateral ligaments are stable. There is some quadriceps weakness. Distal neurovascular exam is intact. RADIOGRAPHS: Radiographs of the left knee failed to reveal any osseous abnormalities. IMPRESSION: Left knee ACL tear. PLAN: Arthroscopy left knee with allograft ACL reconstruction. MMODL / IJN: [id number] /
[~2020-12-23 08:10] MED LIST changes: +MIDAZOLAM 2 MG/2 ML VIAL IV PRN; +ONDANSETRON 4 MG/2 ML VIAL IVP ONE
[2020-12-23] MEDS ORDERED: SCOPOLAMINE 1.5MG/72HR PATCH TRANSDERM ONE (08:57)
[2020-12-23] MEDS ORDERED: MIDAZOLAM 2 MG/2 ML VIAL IV ONE (09:37)
[2020-12-23] MEDS ORDERED: LIDOCAINE 1% INJ 10MG/ML (20 ML MDV) ONE (09:57)
[2020-12-23] MEDS ORDERED: fentaNYL (PF) 50 MCG/ML 2 ML AMP ONE (09:57)
[2020-12-23] MEDS ORDERED: PROPOFOL 10 MG/ML 20 ML VIAL IV ONE (09:57)
[2020-12-23] MEDS ORDERED: ROPIVACAINE 5 MG/ML 30 ML VIAL ONE (09:57)
[2020-12-23] MEDS ORDERED: DEXAMETHASONE SOD PHOSPHATE 4 MG/ML 1 ML VIAL ONE (09:57)
[2020-12-23] MEDS ORDERED: MIDAZOLAM 2 MG/2 ML VIAL ONE (09:57)
--- NOTE | 2020-12-23 12:10 | P.OP ---
Date of Procedure: 12/23/20 Preoperative Diagnosis: Left knee ACL tear Postoperative Diagnosis: 1. ACL tear left knee 2. Reactive synovitis medial, lateral and suprapatellar compartments left knee Procedure(s) Performed: 1. Arthroscopic allograft ACL reconstruction left knee 2. Arthroscopic partial synovectomy medial, lateral and suprapatellar compartments left knee Implants: 2Arthrex Endobutton was 14.75 Arthrex swivel lock anchor Anesthesia: GERRY, local Surgeon: Ashish Johnston Lodging Manager #1: Thomas Samayoa Estimated Blood Loss (ml): 15 Pathology: none sent Condition: stable Disposition: PACU Indications for Procedure: 55-year-old gentleman seen with left knee ACL tear and instability secondary to that. We discussed options. He elected to proceed with arthroscopy to include allograft ACL reconstruction. Operative Findings: see description of procedure Description of Procedure: Patient was taken to the operative suite. Patient underwent a general anesthetic by the department of anesthesia. Patient was given preoperative antibiotics. The left lower extremity was placed in a well-padded arthroscopic leg briones. The left leg was prepped and draped in the normal sterile or thopedic fashion. A lateral parapatellar and suprapatellar incision was made. Trochars were inserted. Arthroscopy was initiated. Suprapatellar pouch revealed diffuse thick reactive synovitis. The patellofemoral joint appeared to articulate congruently. There was mild grade 1 chondromalacia with no tears. The scope was guided into the medial gutter. No loose bodies or plica were identified The scope was then guided into the medial compartment. A medial parapatellar incision was made. Trocar inserted followed by probe. Medial meniscus was found to be stable. There was some reactive synovitis anteriorly. Scope and probe were then guided into the intercondylar notch. There was absence of the ACL. The PCL appear stable. At this point Theron CUENCA began preparing our allograft for implantation. I guided the scope back into the medial compartment. I performed a partial synovectomy. The shaver was removed. There was good decompression of the synovitis. The scope and probe were then guided into lateral compartment. The lateral meniscus was stable. The lateral femoral condyle and tibial plateau were stable. There was some thick reactive synovitis anteriorly. I introduced a motorized shaver and performed a partial synovectomy. Shaver was removed. There was good decompression of the synovitis. I guided the scope back into the intercondylar notch area. I perfo rmed a notchplasty. I now created a femoral tunnel with the assistance of Theron CUENCA. I now created a all inside tibial tunnel with the assistance of Theron CUENCA. The graft was brought to the operative field. We now shuttled the graft into the femoral tunnel visually watching the Endobutton flipped. We now tensioned the graft in the tunnel. We now shuttled the tibial side of the graft into the tibial tunnel. I made an incision along the medial proximal tibia for placement of a Endobutton. We now extended the knee in full extension. We now tensioned the graft on the tibial side and secured it with an Endobutton. Had internal brace as a backup and that was secured via one 4.75 swivel lock anchor into the tibia. Residual sutures were clipped. We now tensioned the femoral si de one more time with the knee in full extension. Those residual sutures were clipped. We now visualized the ACL graft there was positioned very nicely with good overall stability. I took the knee through full range of motion noted. In full flexion and excellent overall stability. The scope was guided back into the medial lateral compartments were unremarkable.. The scope was in guided back into the suprapatellar compartment. I introduced a motorized shaver into the suprapatellar compartment. I performed a partial synovectomy. Shaver was removed. Instruments were now removed from the joint. I repaired the portal sites and that medial mini incision proximal tibia area with nylon suture. The joint was infiltrated with .25% Marcaine. Sterile dressings were applied. The patient was placed into a SEYMOUR hose. We placed the extremity into a soft knee immobilizer. No tourniquet was utilized. The patient was awakened, transferred to a bed and taken to recovery stable satisfactory condition. Theron CUENCA assisted with all aspects of the procedure.
[2020-12-23 12:17] VITALS: TEMP 96.8
[2020-12-23] MEDS: fentaNYL (PF) 50 MCG/ML 2 ML AMP IV PRN ×2 (12:37→12:41)
[2020-12-23] MEDS: HYDROmorphone 0.5 MG/0.5 ML SYRINGE IVP PRN ×2 (12:49→13:03)
[2020-12-23] MEDS ORDERED: LACTATED RINGERS 1,000 ML IV ONE (13:14)
[2020-12-23] MEDS ORDERED: ONDANSETRON 4 MG/2 ML VIAL ONE (13:17)
[2020-12-23] MEDS ORDERED: ONDANSETRON 4 MG/2 ML VIAL IVP ONE (13:19)
[2020-12-23 14:05] VITALS: PULSE 69; RESP 16
[2020-12-23] MEDS ORDERED: KETOROLAC 15 MG/ML 1 ML VIAL ONE (14:19)
[2020-12-23] MEDS ORDERED: KETOROLAC 15 MG/ML 1 ML VIAL IVP ONE (14:22)
[2020-12-23 15:20] VITALS: BP 127/80
--- NOTE | 2020-12-24 08:11 | P.ANPRN ---
Procedure Note - Anesthesia - Nerve Block Performed Left Adductor Canal Single Time Out Performed: Yes Date of Procedure: 12/24/20 Procedure Start Time: :37 Procedure Stop Time: :40 Location of Patient: PreOp Indication: Acute Post-Operative Pain, Requested by Surgeon Sedation Type: Sedate with meaningful contact maintained Preparation: Sterile Prep Position: Supine Needle Types: Pajunk Needle Gauge: 21 Ultrasound used to visualize needle placement: Yes Ultrasound used to observe medication spread: Yes Blood Aspirated: No Pain Paresthesia on Injection Noted: No Resistance on Injection: Normal Image Stored and Saved: Yes Events: Uneventful and Well Tolerated (ropi .5% 20cc plus dexamethasone 4mg)
== END 2020-12-23 15:40 | disposition home or self-care (01) ==
LOC: OR 08:10
PROVIDERS: ATTEND Orthopaedic Surgery
DX: S83.512A Sprain of anterior cruciate ligament of left knee, initial encounter (principal); M65.862 Other synovitis and tenosynovitis, left lower leg; X58.XXXA Exposure to other specified factors, initial encounter
CPT/HCPCS: 64447; 76942; 29888; C1713 ×2; C1762; J2250; J1100; J0690; J2405; J2001; J3010; J2795; J1885; J2704; J1170

== ENCOUNTER 2022-10-02 07:40 | Day surgery (SDC) | payer OTHER ==
[2022-09-29 08:32] VITALS: BMI 25.8
[2022-10-02] MEDS ORDERED: SODIUM CHLORIDE 0.9% 500 ML 500 ML IV ONE (07:52)
[2022-10-02 08:04] VITALS: RESP 16; TEMP 97.9
[2022-10-02] MEDS ORDERED: fentaNYL (PF) 50 MCG/ML 2 ML AMP ONE ×2 (08:33→08:55)
[2022-10-02] MEDS: BENZOCAINE SPRAY 1 CAN MUCOUS MEM ONE ×2 (08:37→08:44)
[2022-10-02] MEDS: MIDAZOLAM 2 MG/2 ML VIAL IVP ONE ×2 (08:50→08:54)
[2022-10-02] MEDS: fentaNYL (PF) 50 MCG/ML 2 ML AMP IVP ONE ×2 (08:50→08:53)
[2022-10-02] MEDS ORDERED: MIDAZOLAM 2 MG/2 ML VIAL IVP ONE ×2 (08:53→08:58)
[2022-10-02] MEDS ORDERED: NALOXONE 0.4 MG/ML 1 ML VIAL IVP ONE (09:01)
--- NOTE | 2022-10-02 09:07 | P.PCN ---
Date of Procedure: 10/02/22 Operative Findings: TRANSESOPHAGEAL ECHOCARDIOGRAM JUNIOR NETWORK ADMINISTRATOR: ANDREA ARREOLA MD, RPVI INDICATION: TIA in this 56-year-old gentleman SEDATION: Conscious sedation COMPLICATION: None LEVEL OF SEDATION Moderate to sedation a length of 20 minutes PROCEDURE DESCRIPTION: After obtaining an informed consent, the patient was brought to transesophageal echocardiogram room. Pulse oximetry and heart monitors were attached to the patient. The patient throat was sprayed using lidocaine. The patient was turned into left lateral position. After that a bite guard was placed. After an appropriate conscious sedation was initiated, the transesophageal echocardiogram was advanced through a bite guard into the mid esophagus. A 2-D echocardiogram images, color Doppler images, continuous wave images, pulse-wave images, of various cardiac structure were performed. After that the transesophageal echocardiogram probe was advanced into the stomach and fixed to obtain transgastric view was. The probe was brought into the mid esophagus. Inter-atrial septum was interrogated using 2D images, color Doppler images, and then contrast study. After that transesophageal echocardiogram was withdrawn out and upon withdrawing the descending thoracic aorta all the way up to the arch was evaluated. FINDING: The left ventricular dimension and systolic function appeared to be within normal limits. The right ventricular dimension and systolic function appeared to be within normal limits. The left atrial appendage appeared to be free from any thrombus. The interatrial septum appeared to be hyperdynamic was evidence of PFO and [id number] shunt. The aortic valve is trileaflet valve with no stenosis with mitral insufficiency. The mitral valve seems to be normal with mild MR only. Normal tricuspid valve and pulmonic valve. CONCLUSION: 1. Normal biventricular dimension and systolic function 2. Hyperdynamic interatrial septum with evidence of [id number] shunt 3. Intact left atrial appendage 4. Overall normal intracardiac valves beside mild aortic insufficiency 5. No evidence of pericardial effusion
[2022-10-02 09:55] VITALS: BP 106/65; PULSE 58
== END 2022-10-02 10:40 | disposition home or self-care (01) ==
LOC: CATHCVL 07:40
PROVIDERS: ATTEND Internal Medicine Interventional Cardiology
DX: I35.1 Nonrheumatic aortic (valve) insufficiency (principal); Q21.2 Atrioventricular septal defect; Z79.82 Long term (current) use of aspirin; Z79.899 Other long term (current) drug therapy
CPT/HCPCS: 93312; 93320; 93325; J2250; J2310; J3010

== ENCOUNTER 2022-12-22 06:03 | Day surgery (SDC) | payer OTHER ==
[2022-12-19 10:18] VITALS: BMI 26.3
[2022-12-22] MEDS ORDERED: ASPIRIN 325 MG TAB PO STA (06:12)
[2022-12-22] MEDS ORDERED: HEPARIN SODIUM,PORCINE (1 ML) 2,500 UNIT in SODIUM CHLORIDE 0.9% 250 ML IRRIGATION PRN (06:12)
[2022-12-22] MEDS ORDERED: ALPRAZolam 0.5 MG TAB PO PRN (06:12)
[2022-12-22] MEDS ORDERED: HEPARIN SODIUM,PORCINE 10,000 UNIT in SODIUM CHLORIDE 0.9% 1,000 ML IRRIGATION PRN (06:12)
[2022-12-22] MEDS ORDERED: NITROGLYCERIN SL TABS 0.4 MG TAB SUBLINGUAL PRN (06:12)
[2022-12-22] MEDS ORDERED: ATORVASTATIN 80 MG TAB PO STA (06:12)
[2022-12-22] MEDS ORDERED: ALPRAZolam 0.25 MG TAB PO PRN (06:12)
[2022-12-22] MEDS: SODIUM CHLORIDE 0.9% 1,000 ML in EMPTY BAG 1 BAG IV SCH ×2 (06:33→16:34)
[2022-12-22] MEDS ORDERED: CLOPIDOGREL 75 MG TAB ONE (06:36)
[2022-12-22 07:28] LABS: African American GFR (CKD) >90 (>60 ml/min/1.73 sqM); Blood Urea Nitrogen 21 mg/dL (9-20); Non-African American GFR(CKD) >90 (>60 ml/min/1.73 sqM)
[2022-12-22] MEDS ORDERED: LIDOCAINE 1% INJ 10MG/ML (20 ML MDV) ONE (07:49)
[2022-12-22] MEDS ORDERED: MIDAZOLAM 2 MG/2 ML VIAL IVP ONE (08:09)
[2022-12-22] MEDS ORDERED: LIDOCAINE 1% INJ 10MG/ML (20 ML MDV) SQ ONE (08:14)
[2022-12-22] MEDS ORDERED: fentaNYL (PF) 50 MCG/ML 2 ML AMP ONE (08:18)
[2022-12-22] MEDS ORDERED: HEPARIN SODIUM 1,000 UN/ML (10ML VL) ONE (08:19)
[2022-12-22] MEDS ORDERED: fentaNYL (PF) 50 MCG/ML 2 ML AMP IVP ONE (08:19)
[2022-12-22] MEDS ORDERED: HEPARIN SODIUM 1,000 UN/ML (10ML VL) IV ONE (08:21)
[2022-12-22] MEDS ORDERED: IOPAMIDOL-250 100ML BTL IVP ONE (08:43)
--- NOTE | 2022-12-22 08:57 | P.PCN ---
Date of Procedure: 12/22/22 Operative Findings: PERCUTANEOUS CLOSURE OF FENESTRATED INTERATRIAL SEPTUM PERFORMING PHYSICIAN: Dong Ramos MD, VI PROCEDURE PERFORMED: 1. Successful percutaneous closure of PFO using 25 Amplatzer Occluder with an excellent results and without any residual shunt. 2. Intracardiac echocardiogram imaging. 3. Right atrial angiogram. 4. Ultrasound-guided access of the right common femoral vein 2 INDICATION: 57-year-old gentleman who was diagnosed was induced TIA/CVA and underwent trans- esophageal echocardiogram and that showed patent foramen ovale with [id number] shunt APPROACH: Right common femoral vein 2 COMPLICATION: None. LEVEL OF SEDATION: Moderate with sedation length of 32 minutes. PROCEDURE DESCRIPTION: After obtaining informed consent, the patient was brought to the cardiac laundry laborer. The right common femoral vein was cannulated x2 using micropuncture technique under ultrasound guidance, the micropuncture wire passed easily, then I placed two 8-British sheath in the right groin. Subsequently I cannulated the left common femoral vein with the same technique and I placed an 8-British sheath there as well. At that point, anticoagulation was initiated using heparin and the patient was given a bolus of 4,000 units of heparin IV with continuous ACT monitoring throughout the procedure. After that, the intracardiac echocardiogram probe was advanced through one of the venous sheath all the way to the right atrium where we did interrogate the interatrial septum and identified the patent foramen ovale which was measured about 25 mm. Subsequently, I did cross the defect using 0.035 glide advantage wire with the backup support of multipurpose catheter. Attempting crossing the PFO using a J-wire was unsuccessful. The wire was advanced all the way to the left upper pulmonary vein and subsequently the catheter was advanced over the wire to the left upper pulmonary vein. The 0.035 glide advantage was pulled out and then I advanced a onel wire. Subsequently, the multipurpose catheter was withdrawn out and the wire was left in the left upper pulmonary vein. After that, I did prep the Amplatzer PFO occluder under saline. The device was loaded into the calcine furnace loader, which was attached to the sheath. Subsequently, I did exchange my 8-British sheath into the Shuttle sheath over a 0.035 onel wire. The sheath was advanced all the way under fluoroscopy guidance to the left atrium. Subsequently, the dilator of the sheath was withdrawn out along with the wire. After that, I did load the Amplatzer occluder under continuous saline flush to the sheath. The device was advanced all the way through the sheath were I did where I did deploy initially the left atrial occluder and then I pulled back the sheath and the left atrial occluder all the way to the interatrial septum and then I deployed the right atrial occluder after that. Before I released the device, I did interrogate the septum using ice images on multiple views. After I realized that the device was stable enough and in good position the device was released. Interrogation using ice was also performed after the device was released. By the end I did right atrial angiogram. The procedure was completed without any complication. POSTPROCEDURE MANAGEMENT: 1. Dual anti-platelet therapy. 2. An echo in 24 hours, in 1 week, in 4 weeks, as well as in 6 months.
[2022-12-22] MEDS ORDERED: SODIUM CHLORIDE 0.9% 1,000 ML IV SCH (09:00)
[2022-12-22 21:16] VITALS: RESP 16
--- NOTE | 2022-12-23 07:22 | XR ---
EXAMINATION TYPE: XR chest 2V DATE OF EXAM: 12/23/2022 6:40 AM COMPARISON: Chest radiographs from TECHNIQUE: XR chest 2V Frontal and lateral views of the chest. CLINICAL INDICATION:Male, 57 years old with history of ASD/PFO placement; FINDINGS: Lungs/Pleura: There is no evidence of pleural effusion, focal consolidation, or pneumothorax. Left b asilar linear atelectasis. Pulmonary vascularity: Unremarkable. Heart/mediastinum: Cardiomediastinal silhouette is unremarkable. Post surgical change from ASD/PFO p lacement. Musculoskeletal: No acute osseous pathology. IMPRESSION: Post surgical change from ASD/PFO placement with left basilar linear atelectasis.
[2022-12-23] MEDS ORDERED: CLOPIDOGREL 75 MG TAB PO SCH (09:00)
[2022-12-23] MEDS ORDERED: ASPIRIN 325 MG TAB PO SCH (09:00)
[2022-12-23 09:01] VITALS: BP 130/81; PULSE 72; TEMP 97.9
--- NOTE | 2022-12-23 14:34 | CA ---
Transthoracic Echo Report Name: Albert Yarbrough Age: 57 Gender: M : 1965 Exam Date: 12/23/2022 08:14 Exam Location: [facility] Ht (in): 68 Wt (lb): 180 Ordering Physician: Dong Ramos MD ([id number]) Attending/Referring Phys: Richard Umana;[id number] Data Processing Clerk Ninfa Castano RDCS Procedure CPT: Indications: Post ASD/PFO Insertion Cardiac Hx: Technical Quality: Fair Contrast 1: Total Dose (mL): Contrast 2: Total Dose (mL): MEASUREMENTS (Male / Female) Normal Values 2D ECHO LV Diastolic Diameter PLAX 4.4 cm 4.2 - 5.9 / 3.9 - 5.3 cm LV Systolic Diameter PLAX 3.2 cm IVS Diastolic Thickness 1.1 cm 0.6 - 1.0 / 0.6 - 0.9 cm LVPW Diastolic Thickness 1.0 cm 0.6 - 1.0 / 0.6 - 0.9 cm LV Relative Wall Thickness 0.5 RV Internal Dim ED PLAX 3.2 cm LA Volume 54.6 cm??? 18 - 58 / 22 - 52 cm??? M-MODE Aortic Root Diameter MM 3.1 cm LA Systolic Diameter MM 4.1 cm LA Ao Ratio MM 1.3 AV Cusp Separation MM 2.1 cm DOPPLER AV Peak Velocity 113.2 cm/s AV Peak Gradient 5.1 mmHg AV Mean Velocity 80.5 cm/s AV Mean Gradient 2.8 mmHg AV Velocity Time Integral 21.8 cm LVOT Peak Velocity 97.4 cm/s LVOT Peak Gradient 3.8 mmHg LVOT Velocity Time Integral 18.3 cm MV Area PHT 2.9 cm??? Mitral E Point Velocity 61.5 cm/s Mitral A Point Velocity 87.3 cm/s Mitral E to A Ratio 0.7 MV Deceleration Time 261.8 ms MV E' Velocity 6.0 cm/s Mitral E to MV E' Ratio 10.2 TR Peak Velocity 213.4 cm/s TR Peak Gradient 18.2 mmHg Right Ventricular Systolic Press 23.0 mmHg FINDINGS Left Ventricle Mildly increased left ventricular wall thickness. Normal left ventricular systolic function with no obvious regional wall motion abnormalities. Left ventricular cavity size normal. Left ventricular ejection fraction is estimated at 55-60 %. Right Ventricle Normal right ventricular size and function. Right ventricular systolic pressure within normal limits. Right Atrium Normal right atrial size. Left Atrium Normal left atrial size. PFO closure device noted in place. Cannot exclude minimal flow [id number] Mitral Valve Structurally normal mitral valve. mild mitral regurgitation. Aortic Valve Trileaflet aortic valve. No aortic valve stenosis or regurgitation. Tricuspid Valve Structurally normal tricuspid valve. Mild tricuspid regurgitation. Pulmonic Valve Trace pulmonic regurgitation. Pericardium No pericardial effusion. Aorta Normal size aortic root and proximal ascending aorta. CONCLUSIONS 1. Normal left ventricle size and systolic function 2. Closure device in the interatrial septum with possible small flow left-to- right 3. Mild mitral and tricuspid regurgitation with no evidence of pulmonary hypertension Previewed by: Dr. Cristobal Gonzalez MD (Electronically Signed) Final Date: 23 December 2022 14:33
== END 2022-12-23 11:11 | disposition home or self-care (01) ==
LOC: CATHCVL 06:03 → 3SCARD 08:45 → CATHCVL 12-23 11:11
PROVIDERS: ATTEND Internal Medicine Interventional Cardiology
DX: Q21.12 Patent foramen ovale (principal); Z86.73 Personal history of transient ischemic attack (TIA), and cerebral infarction without residual deficits; Z79.82 Long term (current) use of aspirin; Z79.899 Other long term (current) drug therapy
CPT/HCPCS: 93306; 93580; 93662; 86900; 86901; 82565; 84520; 86850; 71046; C1769 ×3; C1894; C1817; C1760; C1759; J2250; J0690; J2001; J3010; J1644; Q9966

== ENCOUNTER 2023-08-07 14:26 | Emergency (ER) | payer OTHER ==
--- NOTE | 2023-08-07 15:08 | ED ---
General Adult HPI - General Chief complaint: Neuro Symptoms/Deficit Stated complaint: Possible stroke Time Seen by Provider: 08/07/23 15:07 Source: patient Mode of arrival: ambulatory Limitations: no limitations - History of Present Illness Initial comments: This patient is a 57-year-old man with history of previous TIA who presents with complaint that he feels like his symptoms have recurred. He states that he gets vision that is slightly blurry. He states it feels like he is having tunnel vision. He also has right facial numbness. The symptoms started approximately 4 PM yesterday. The patient was at work and he states that the symptoms were most severe around 11 PM. The symptoms continued today and he spoke with his physician by phone and she recommended that he be seen in emergency. States with previous TIA that he had "a hole in the heart" and that this had been repaired, previous episode was probably 3 or 4 years ago. Onset/Timin -: hour(s) Location: face, eyes Consistency: constant Improves with: none Worsens with: none Associated Symptoms: denies other symptoms Treatments Prior to Arrival: none - Related Data Home Medications Medication Instructions Recorded Confirmed Atorvastatin [Lipitor] 40 mg PO DAILY 09/29/22 08/07/23 Previous Rx's Medication Instructions Recorded Aspirin 81 mg PO DAILY #90 tab 12/23/22 Allergies Allergy/AdvReac Type Severity Reaction Status Date / Time corn Allergy Severe Swelling Verified 08/07/23 15:58 THROAT peanut Allergy Severe Swelling Verified 08/07/23 15:58 THROAT soy Allergy Unknown Verified 08/07/23 15:58 Review of Systems ROS Statement: Those systems with pertinent positive or pertinent negative responses have been documented in the HPI. ROS Other: All systems not noted in ROS Statement are negative. Constitutional: Denies: fever, chills Eyes: Reports: vision change. Denies: eye pain ENT: Denies: ear pain, hearing loss Respiratory: Denies: cough, dyspnea Cardiovascular: Denies: chest pain, palpitations, edema Gastrointestinal: Denies: abdominal pain, nausea, vomiting Genitourinary: Denies: dysuria, hematuria Musculoskeletal: Denies: back pain Skin: Denies: rash Neurological: Reports: numbness. Denies: headache, weakness, confusion Past Medical History Past Medical History: CVA/TIA, Hyperlipidemia Additional Past Medical History / Comment(s): "HOLE IN HEART". TIA X2 History of Any Multi-Drug Resistant Organisms: None Reported Past Surgical History: Hernia Repair, Orthopedic Surgery Additional Past Surgical History / Comment(s): Colonoscopy, bilateral knee arthroscopy, left knee ACL repair Past Anesthesia/Blood Transfusion Reactions: Postoperative Nausea & Vomiting (PONV) Past Psychological History: No Psychological Hx Reported Smoking Status: Never smoker Past Alcohol Use History: None Reported Past Drug Use History: None Reported - Past Family History Mother Family Medical History: No Reported History Father Additional Family Medical History / Comment(s): "heart issues" Brother(s) Additional Family Medical History / Comment(s): "heart issues" General Exam Limitations: no limitations General appearance: alert, in no apparent distress Head exam: Present: atraumatic, normocephalic Eye exam: Present: normal appearance, PERRL, EOMI. Absent: scleral icterus, conjunctival injection ENT exam: Present: normal oropharynx Neck exam: Present: normal inspection, other (No carotid bruit) Respiratory exam: Present: normal lung sounds bilaterally. Absent: respiratory distress, wheezes, rales, rhonchi, stridor, accessory muscle use Cardiovascular Exam: Present: regular rate, normal rhythm, normal heart sounds. Absent: systolic murmur, diastolic murmur, rubs, gallop GI/Abdominal exam: Present: soft. Absent: distended, tenderness, guarding, rebound, rigid, mass Extremities exam: Present: normal inspection, normal capillary refill. Absent: pedal edema, calf tenderness Back exam: Present: normal inspection. Absent: CVA tenderness (R), CVA tenderness (L) Neurological exam: Present: alert, oriented X3, CN II-XII intact. Absent: motor sensory deficit Expanded Patient oriented to: Present: person, place, time Speech: Present: fluid speech Cranial nerves: EOM's Intact: Normal, Gag Reflex: Normal, Tongue Deviation: Normal, Facial Sensation: Normal Sensory exam: Upper Extremity Light Touch: Normal, Lower Extremity Light Touch: Normal Motor strength exam: RUE: 5, LUE: 5, RLE: 5, LLE: 5 Eye Response: (4) open spontaneously Motor Response: (6) obeys commands Verbal Response: (5) oriented Skin exam: Present: warm, dry, intact, normal color. Absent: rash Course Vital Signs 0408/07/23 08/07/23 14:28 15:40 17:01 Temperature 97.5 F L 98.0 F 97.6 F Pulse Rate 67 52 L 53 L Respiratory 16 17 20 Rate Blood Pressure 168/100 125/84 125/89 O2 Sat by Pulse 98 95 97 Oximetry EKG Findings - EKG Results: EKG: sinus rhythm, normal axis, normal QRS, normal ST/T, no acute changes EKG shows: bradycardia (Rate 51 bpm) Medical Decision Making - Medical Decision Making The patient had chest x-ray that I interpreted as negative for acute infiltrate, pneumothorax, congestive heart failure The patient had CT of the brain that I interpreted as negative for acute bony injury or acute intracranial hemorrhage. Was pt. sent in by a medical professional or institution (Dr. PA, SENIOR BOOKKEEPER, urgent care, hospital, or long term...) When possible be specific @ -[No] Did you speak to anyone other than the patient for history (EMS, parent, family, police, friend...)? What history was obtained from this source @ -[No] Did you review nursing and triage notes (agree or disagree)? Why? @ -[I reviewed and agree with nursing and triage notes] Were old charts reviewed (outside hosp., previous admission, EMS record, old EKG, old radiological studies, urgent care reports/EKG's, long term records)? Report findings @ -[No old charts were reviewed] Differential Diagnosis (chest pain, altered mental status, abdominal pain women, abdominal pain men, vaginal bleeding, weakness, fever, dyspnea, syncope, headache, dizziness, GI bleed, back pain, seizure, CVA, palpatations, mental health, musculoskeletal)? @ -[Differential CVA Ischemic stroke, hemorrhagic stroke, brain tumor, atypical migraine, Wernicke's encephalopathy, seizure, multiple sclerosis, meningitis, encephalitis, hypoglycemia, Guillain-Bronson, electrolytes disturbance, myasthenia gravis.... This is not meant to be an all-inclusive list EKG interpreted by me (3pts min.). @ -[I interpreted as above] X-rays interpreted by me (1pt min.). @ -[I interpreted as above CT interpreted by me (1pt min.). @ -I interpreted as above U/S interpreted by me (1pt. min.). @ -[None done] What testing was considered but not performed or refused? (CT, X-rays, U/S, labs)? Why? @ -[None] What meds were considered but not given or refused? Why? @ -[None] Did you discuss the management of the patient with other professionals (professionals i.e. , PA, SENIOR BOOKKEEPER, lab, RT, psych nurse, social sciences instructor, workflow developer, t eacher, consular officer, case technician)? Give summary @ -[No] Was smoking cessation discussed for >3mins.? @ -[No] Was critical care preformed (if so, how long)? @ -[No] Were there social determinants of health that impacted care today? How? (Homelessness, low income, unemployed, alcoholism, drug addiction, transportation, low edu. Level, literacy, decrease access to med. care, fci, rehab)? @ -[No] Was there de-escalation of care discussed even if they declined (Discuss DNR or withdrawal of care, Hospice)? DNR status @ -[No] What co-morbidities impacted this encounter? (DM, HTN, Smoking, COPD, CAD, Cancer, CVA, ARF, Chemo, Hep., AIDS, mental health diagnosis, sleep apnea, morbid obesity)? @ -[None] Was patient admitted / discharged? Hospital course, mention meds given and route, prescriptions, significant lab abnormalities, going to OR and other pertinent info. @ -The patient here with facial paresthesias. His physical exam and workup are unremarkable. The patient at this point stable to have continued workup as outpatient we discussed appropriate further care and follow-up as well as return parameters. Undiagnosed new problem with uncertain prognosis? @ -[No] Drug Therapy requiring intensive monitoring for toxicity (Heparin, Nitro, Insulin, Cardizem)? @ -[No] Were any procedures done? @ -[No] Diagnosis/symptom? @ -[Acute facial paresthesia Acute, or Chronic, or Acute on Chronic? @ -[Acute Uncomplicated (without systemic symptoms) or Complicated (systemic symptoms)? @ -[Uncomplicated Side effects of treatment? @ -[No] Exacerbation, Progression, or Severe Exacerbation? @ -[No] Poses a threat to life or bodily function? How? (Chest pain, USA, ME, pneumonia, PE, COPD, DKA, ARF, appy, cholecystitis, CVA, Diverticulitis, Homicidal, Suicidal, threat to staff... and all critical care pts) @ -[No] - Lab Data Result diagrams: 08/07/23 15:20 08/07/23 15:20 Lab Results 08/07/23 08/07/23 08/07/23 Range/Units 15:20 15:20 15:20 WBC 4.4 (3.8-10.6) k/uL RBC 4.44 (4.30-5.90) m/uL Hgb 14.8 (13.0-17.5) gm/dL Hct 43.0 (39.0-53.0) % MCV 96.9 (80.0-100.0) fL MCH 33.3 (25.0-35.0) pg MCHC 34.4 (31.0-37.0) g/dL RDW 12.0 (11.5-15.5) % Plt Count 194 (150-450) k/uL MPV 7.8 Neutrophils % 65 % Lymphocytes % 23 % Monocytes % 8 % Eosinophils % 2 % Basophils % 1 % Neutrophils # 2.9 (1.3-7.7) k/uL Lymphocytes # 1.0 (1.0-4.8) k/uL Monocytes # 0.4 (0-1.0) k/uL Eosinophils # 0.1 (0-0.7) k/uL Basophils # 0.0 (0-0.2) k/uL PT 11.2 (10.0-12.5) sec INR 1.0 (<1.2) APTT 24.6 (22.0-30.0) sec Sodium 141 (137-145) mmol/L Potassium 4.1 (3.5-5.1) mmol/L Chloride 112 H (98-107) mmol/L Carbon Dioxide 23 (22-30) mmol/L Anion Gap 6 mmol/L BUN 16 (9-20) mg/dL Creatinine 0.73 (0.66-1.25) mg/dL Est GFR (CKD-EPI)AfAm >90 (>60 ml/min/1.73 sqM) Est GFR (CKD-EPI)NonAf >90 (>60 ml/min/1.73 sqM) Glucose 90 (74-99) mg/dL Calcium 8.8 (8.4-10.2) mg/dL Total Bilirubin 0.5 (0.2-1.3) mg/dL AST 21 (17-59) U/L ALT 18 (4-49) U/L Alkaline Phosphatase 70 (38-126) U/L Creatine Kinase 75 (55-170) U/L Troponin I (0.000-0.034) ng/mL Total Protein 6.4 (6.3-8.2) g/dL Albumin 4.0 (3.5-5.0) g/dL 08/07/23 Range/Units 15:20 WBC (3.8-10.6) k/uL RBC (4.30-5.90) m/uL Hgb (13.0-17.5) gm/dL Hct (39.0-53.0) % MCV (80.0-100.0) fL MCH (25.0-35.0) pg MCHC (31.0-37.0) g/dL RDW (11.5-15.5) % Plt Count (150-450) k/uL MPV Neutrophils % % Lymphocytes % % Monocytes % % Eosinophils % % Basophils % % Neutrophils # (1.3-7.7) k/uL Lymphocytes # (1.0-4.8) k/uL Monocytes # (0-1.0) k/uL Eosinophils # (0-0.7) k/uL Basophils # (0-0.2) k/uL PT (10.0-12.5) sec INR (<1.2) APTT (22.0-30.0) sec Sodium (137-145) mmol/L Potassium (3.5-5.1) mmol/L Chloride (98-107) mmol/L Carbon Dioxide (22-30) mmol/L Anion Gap mmol/L BUN (9-20) mg/dL Creatinine (0.66-1.25) mg/dL Est GFR (CKD-EPI)AfAm (>60 ml/min/1.73 sqM) Est GFR (CKD-EPI)NonAf (>60 ml/min/1.73 sqM) Glucose (74-99) mg/dL Calcium (8.4-10.2) mg/dL Total Bilirubin (0.2-1.3) mg/dL AST (17-59) U/L ALT (4-49) U/L Alkaline Phosphatase (38-126) U/L Creatine Kinase (55-170) U/L Troponin I <0.012 (0.000-0.034) ng/mL Total Protein (6.3-8.2) g/dL Albumin (3.5-5.0) g/dL Disposition Clinical Impression: Paresthesia Disposition: HOME SELF-CARE Condition: Good Instructions (If sedation given, give patient instructions): Paresthesia (ED) Is patient prescribed a controlled substance at d/c from ED?: No Referrals: Martina Chiu MD [Primary Care Provider] - 1-2 days Maria M Kendrick MD [Medical Doctor] - 1-2 days
[2023-08-07 15:31] LABS: Basophils % (A) 1 %; Eosinophils # (A) 0.1 k/uL (0-0.7); Eosinophils % (A) 2 %; HGB 14.8 gm/dL (13.0-17.5); Lymphocytes % (A) 23 %; MCH 33.3 pg (25.0-35.0); MCHC 34.4 g/dL (31.0-37.0); MCV 96.9 fL (80.0-100.0); Mean Platelet Volume 7.8; Monocytes # (A) 0.4 k/uL (0-1.0); Monocytes % (A) 8 %; Neutrophils # (A) 2.9 k/uL (1.3-7.7); Neutrophils % (A) 65 %; Platelet Count 194 k/uL (150-450); RBC 4.44 m/uL (4.30-5.90); WBC 4.4 k/uL (3.8-10.6)
[2023-08-07] MEDS: SODIUM CHLORIDE 0.9% 500 ML 500 ML IV STA (15:41)
[2023-08-07 15:42] LABS: ALT 18 U/L (4-49); AST 21 U/L (17-59); African American GFR (CKD) >90 (>60 ml/min/1.73 sqM); Alkaline Phosphatase 70 U/L (38-126); Anion Gap 6 mmol/L; Blood Urea Nitrogen 16 mg/dL (9-20); Calcium 8.8 mg/dL (8.4-10.2); Carbon Dioxide 23 mmol/L (22-30); Chloride 112 mmol/L (98-107); Creatine Kinase 75 U/L (55-170); Glucose 90 mg/dL (74-99); Non-African American GFR(CKD) >90 (>60 ml/min/1.73 sqM); Potassium 4.1 mmol/L (3.5-5.1); Sodium 141 mmol/L (137-145); Total Bilirubin 0.5 mg/dL (0.2-1.3); Total Protein 6.4 g/dL (6.3-8.2)
[2023-08-07] MEDS: LABETALOL 5 MG/ML VIAL MDV IVP STA (15:43)
[2023-08-07 16:01] LABS: Partial Thromboplastin Time 24.6 sec (22.0-30.0); Prothrombin Time 11.2 sec (10.0-12.5)
--- NOTE | 2023-08-07 16:15 | CT ---
EXAMINATION TYPE: CODE STROKE: CT brain wo contr DATE OF EXAM: 08/07/2023 COMPARISON: None INDICATION: right facial weakness and slurred speech x2 days DLP: 1140.4 mGycm, Automated exposure control for dose reduction was used. CONTRAST: None CT of the brain is performed utilizing 3 mm thick sections through the posterior fossa and 3 mm thick sections through the remaining calvarium. Study is performed within 24 hours of arrival to the hosp ital. No abnormal hyperdensity is present to suggest an acute intracranial hemorrhage. No mass lesion is evident. No acute infarcts are evident. Ventricles and sulci are appropriate for the patient age. Paranasal sinuses and mastoid air cells within the [id number] are clear. IMPRESSION: 1. No acute intracranial process. Follow-up MRI can be performed as clinically indicated.
--- NOTE | 2023-08-07 16:20 | XR ---
EXAMINATION TYPE: XR chest 2V DATE OF EXAM: 08/07/2023 COMPARISON: 12/23/2022 INDICATION: Altered mental status TECHNIQUE: Frontal and lateral views of the chest are obtained. FINDINGS: The heart size is normal. The pulmonary vasculature is normal. The lungs are clear. IMPRESSION: 1. No acute pulmonary process.
[2023-08-07 17:21] VITALS: BP 125/89; PULSE 53; RESP 20; TEMP 97.6
== END 2023-08-07 17:07 | disposition home or self-care (01) ==
LOC: EC 14:26
DX: R20.2 Paresthesia of skin (principal); Z86.73 Personal history of transient ischemic attack (TIA), and cerebral infarction without residual deficits; Z91.018 Allergy to other foods
CPT/HCPCS: 36415; 70450; 71046; 80053; 82550; 84484; 85025; 85610; 85730; 93005; 99284

== ENCOUNTER → 2023-08-30 | Outpatient (CLI) | payer OTHER ==
--- NOTE | 2023-08-30 11:04 | MR ---
EXAMINATION TYPE: MR brain wo/w con DATE OF EXAM: 08/30/2023 COMPARISON: 12/16/2018. HISTORY: Mental status change TECHNIQUE: Multiplanar, multisequence images of the brain and brainstem is performed without and with IV contras t, utilizing 7 mL intravenous Gadavist . FINDINGS: Diffusion weighted images demonstrate no evidence of a recent infarct or other diffusion ab normality. Mild generalized degenerative changes. A minimal focal areas of abnormal white matter sign al are nonspecific could be associated with hypertension and remote microvascular ischemia. Midline s tructures demonstrate normal morphology. The craniocervical junction appears within normal limits. Post contrast images demonstrate a question of a tiny venous angioma in the right frontoparietal whit e matter. No enhancing mass.. The dural venous sinuses appear patent. Orbits again appears somewhat o void in shape correlate clinically. Mild changes of chronic sinusitis. IMPRESSION: 1. Minimal nonspecific white matter changes can be associated with hypertension or remote ischemic wh ite matter change. 2. Mild chronic sinusitis. 3. Stable ovoid morphology of the orbits nonspecific correlate clinically.
== END | disposition home or self-care (01) ==
LOC: RADMRIMAIN 09:17
PROVIDERS: ATTEND Family Medicine
DX: J32.9 Chronic sinusitis, unspecified (principal); G45.9 Transient cerebral ischemic attack, unspecified; R90.82 White matter disease, unspecified
CPT/HCPCS: 70553; A9585

== ENCOUNTER 2024-06-21 10:45 | Inpatient (IN) | payer OTHER ==
--- NOTE | 2024-06-21 11:03 | ED ---
General Adult HPI - General Chief complaint: Neuro Symptoms/Deficit Stated complaint: Numbness in face Time Seen by Provider: 06/21/24 10:50 Source: patient, RN notes reviewed, old records reviewed Mode of arrival: ambulatory Limitations: no limitations - History of Present Illness Initial comments: This is a 58-year-old male who states yesterday he went to bed and was completely normal. Patient states he woke up but 9 his at 930 and noted that his right side of his face was droopy. Patient noted that he also had some right hand weakness as well as some decrease sensation on the right side of his face. 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 Patient denies any blood thinners. Patient states approximately half an hour prior to arrival he started experiencing some left-sided chest discomfort. Patient denies any radiation of that discomfort patient denies any difficulty breathing or shortness of breath. Patient is on high cholesterol medications. Patient denies diabetes or hypertension denies smoking. - Related Data Home Medications Medication Instructions Recorded Confirmed Atorvastatin [Lipitor] 40 mg PO DAILY 09/29/22 06/21/24 Previous Rx's Medication Instructions Recorded Aspirin 81 mg PO DAILY #90 tab 12/23/22 Allergies Allergy/AdvReac Type Severity Reaction Status Date / Time corn Allergy Severe Swelling Verified 06/21/24 11:34 THROAT peanut Allergy Severe Swelling Verified 06/21/24 11:34 THROAT soy Allergy Unknown Verified 06/21/24 11:34 Review of Systems ROS Statement: Those systems with pertinent positive or pertinent negative responses have been documented in the HPI. ROS Other: All systems not noted in ROS Statement are negative. Past Medical History Past Medical History: CVA/TIA, Hyperlipidemia Additional Past Medical History / Comment(s): "HOLE IN HEART". TIA X2 History of Any Multi-Drug Resistant Organisms: None Reported Past Surgical History: Hernia Repair, Orthopedic Surgery Additional Past Surgical History / Comment(s): Colonoscopy, bilateral knee arthroscopy, left knee ACL repair Past Anesthesia/Blood Transfusion Reactions: Postoperative Nausea & Vomiting (PONV) Past Psychological History: No Psychological Hx Reported Smoking Status: Never smoker Past Alcohol Use History: None Reported Past Drug Use History: None Reported - Past Family History Mother Family Medical History: No Reported History Father Additional Family Medical History / Comment(s): "heart issues" Brother(s) Additional Family Medical History / Comment(s): "heart issues" General Exam - General Exam Comments Initial Comments: GENERAL: Patient is well-developed and well-nourished. Patient is nontoxic and well- hydrated and is in mild distress. ENT: Neck is soft and supple. No significant lymphadenopathy is noted. Oropharynx is clear. Moist mucous membranes. Neck has full range of motion without e liciting any pain. EYES: The sclera were anicteric and conjunctiva were pink and moist. Extraocular movements were intact and pupils were equal round and reactive to light. Eyelids were unremarkable. PULMONARY: Unlabored respirations. Good breath sounds bilaterally. No audible rales rhonchi or wheezing was noted. CARDIOVASCULAR: There is a regular rate and rhythm without any murmurs gallops or rubs. ABDOMEN: Soft and nontender with normal bowel sounds. SKIN: Skin is clear with no lesions or rashes and otherwise unremarkable. NEUROLOGIC: Patient is alert and oriented x3. Patient has slight right-sided facial droop forehead is not involved. Patient has slight weakness in the right hand compared to left 4 out of 5 on the right 5 out of 5 on the left patient's NIH is 2 MUSCULOSKELETAL: Normal extremities with adequate strength and full range of motion. No lower extremity swelling or edema. No calf tenderness. LYMPHATICS: No significant lymphadenopathy is noted PSYCHIATRIC: Normal psychiatric evaluation. Limitations: no limitations Course Vital Signs 06/21/24 06/21/24 06/21/24 10:46 10:59 11:29 Temperature 97.5 F L Pulse Rate 59 L 57 L 54 L Respiratory 18 20 20 Rate Blood Pressure 155/89 141/96 O2 Sat by Pulse 99 95 98 Oximetry 06/21/24 11:36 Temperature Pulse Rate Respiratory Rate Blood Pressure 139/86 O2 Sat by Pulse Oximetry Medical Decision Making - Medical Decision Making EKG is interpreted by myself and EKG shows a sinus bradycardia 56 bpm MI was under 73 QRS is 101 QT interval 422 QTc is 414. EKG shows no ST segment elevation or depression. Was pt. sent in by a medical professional or institution (, PA, HOME ENERGY INSPECTOR, urgent care, hospital, or group home...) When possible be specific @ -No Did you speak to anyone other than the patient for history (EMS, parent, family, police, friend...)? What history was obtained from this source @ -No Did you review nursing and triage notes (agree or disagree)? Why? @ -I reviewed and agree with nursing and triage notes Were old charts reviewed (outside hosp., previous admission, EMS record, old EKG, old radiological studies, urgent care reports/EKG's, group home records)? Report findings @ -No old charts were reviewed Differential Diagnosis? @ -Differential CVA Ischemic stroke, hemorrhagic stroke, brain tumor, atypical migraine, Wernicke's encephalopathy, seizure, multiple sclerosis, meningitis, encephalitis, hypogly cemia, Guillain-Bronson, electrolytes disturbance, myasthenia gravis.... This is not meant to be an all-inclusive list EKG interpreted by me (3pts min.). @ -As above X-rays interpreted by me (1pt min.). @ -Chest x-ray shows no acute abnormality CT interpreted by me (1pt min.). @ -CT of the brain shows a questionable right frontal lobe acute versus subacute infarct though this is not consistent with the patient's symptoms. Patient CT angio of the head and neck showed no acute abnormality. CT of the chest to rule out aortic dissection was normal. U/S interpreted by me (1pt. min.). @ -None done What testing was considered but not performed or refused? (CT, X-rays, U/S, labs)? Why? @ -None What meds were considered but not given or refused? Why? @ -None Did you discuss the management of the patient with other professionals (professionals i.e. , PA, HOME ENERGY INSPECTOR, lab, RT, psych nurse, school social worker, senior property accountant, teacher, human resource officer, manager of case management)? Give summary @ -[facility] Was smoking cessation discussed for >3mins.? @ -No Was critical care preformed (if so, how long)? @ -35 minutes Were there social determinants of health that impacted care today? How? (Homelessness, low income, unemployed, alcoholism, drug addiction, transport ation, low edu. Level, literacy, decrease access to med. care, residential, rehab)? @ -No Was there de-escalation of care discussed even if they declined (Discuss DNR or withdrawal of care, Hospice)? DNR status @ -No What co-morbidities impacted this encounter? (DM, HTN, Smoking, COPD, CAD, Cancer, CVA, ARF, Chemo, Hep., AIDS, mental health diagnosis, sleep apnea, morbid obesity)? @ -None Was patient admitted / discharged? Hospital course, mention meds given and route, prescriptions, significant lab abnormalities, going to OR and other pertinent info. @ -Patient continued to have symptoms throughout his ED course. CAT scan showed a possible acute versus subacute area of infarct in the right frontal lobe. Patient will be admitted to [facility] and a consult be placed for neurology for the CVA-like symptoms and cardiology for the chest pain Undiagnosed new problem with uncertain prognosis? @ -No Drug Therapy requiring intensive monitoring for toxicity (Heparin, Nitro, Insuli n, Cardizem)? @ -No Were any procedures done? @ -No Diagnosis/symptom? @ -CVA Acute, or Chronic, or Acute on Chronic? @ -Acute Uncomplicated (without systemic symptoms) or Complicated (systemic symptoms)? @ -Complicate Side effects of treatment? @ -No Exacerbation, Progression, or Severe Exacerbation? @ -No Poses a threat to life or bodily function? How? (Chest pain, USA, MO, pneumonia, PE, COPD, DKA, ARF, appy, cholecystitis, CVA, Diverticulitis, Homicidal, Suicidal, threat to staff... and all critical care pts) @ -Yes this could lead to more massive stroke and morbidity or possibly mortality Diagnosis/symptom? @ -Chest pain Acute, or Chronic, or Acute on Chronic? @ -Acute Uncomplicated (without systemic symptoms) or Complicated (systemic symptoms)? @ -Complicated Side effects of treatment? @ -None Exacerbation, Progression, or Severe Exacerbation] @ -No Poses a threat to life or bodily function? @ -Yes this could lead to an MO and endorgan dysfunction - Lab Data Result diagrams: 06/21/24 10:50 06/21/24 10:50 Lab Results 06/21/24 06/21/24 06/21/24 Range/Units 10:50 10:50 10:50 WBC 4.1 (3.8-10.6) k/uL RBC 4.99 (4.30-5.90) m/uL Hgb 16.1 (13.0-17.5) gm/dL Hct 48.3 (39.0-53.0) % MCV 97.0 (80.0-100.0) fL MCH 32.3 (25.0-35.0) pg MCHC 33.3 (31.0-37.0) g/dL RDW 12.0 (11.5-15.5) % Plt Count 217 (150-450) k/uL MPV 7.3 Neutrophils % 56 % Lymphocytes % 30 % Monocytes % 8 % Eosinophils % 2 % Basophils % 0 % Neutrophils # 2.3 (1.3-7.7) k/uL Lymphocytes # 1.2 (1.0-4.8) k/uL Monocytes # 0.3 (0-1.0) k/uL Eosinophils # 0.1 (0-0.7) k/uL Basophils # 0.0 (0-0.2) k/uL PT 11.6 (10.0-12.5) sec INR 1.1 (<1.2) APTT 23.2 (22.0-30.0) sec Sodium 139 (137-145) mmol/L Potassium 4.2 (3.5-5.1) mmol/L Chloride 104 (98-107) mmol/L Carbon Dioxide 27 (22-30) mmol/L Anion Gap 8 mmol/L BUN 18 (9-20) mg/dL Creatinine 0.77 (0.66-1.25) mg/dL Est GFR (CKD-EPI)AfAm >90 (>60 ml/min/1.73 sqM) Est GFR (CKD-EPI)NonAf >90 (>60 ml/min/1.73 sqM) Glucose 87 (74-99) mg/dL Calcium 9.1 (8.4-10.2) mg/dL Total Bilirubin 0.9 (0.2-1.3) mg/dL AST 21 (17-59) U/L ALT 22 (4-49) U/L Alkaline Phosphatase 61 (38-126) U/L Creatine Kinase 83 (55-170) U/L Troponin I (0.000-0.034) ng/mL Total Protein 7.0 (6.3-8.2) g/dL Albumin 4.5 (3.5-5.0) g/dL 06/21/24 Range/Units 10:50 WBC (3.8-10.6) k/uL RBC (4.30-5.90) m/uL Hgb (13.0-17.5) gm/dL Hct (39.0-53.0) % MCV (80.0-100.0) fL MCH (25.0-35.0) pg MCHC (31.0-37.0) g/dL RDW (11.5-15.5) % Plt Count (150-450) k/uL MPV Neutrophils % % Lymphocytes % % Monocytes % % Eosinophils % % Basophils % % Neutrophils # (1.3-7.7) k/uL Lymphocytes # (1.0-4.8) k/uL Monocytes # (0-1.0) k/uL Eosinophils # (0-0.7) k/uL Basophils # (0-0.2) k/uL PT (10.0-12.5) sec INR (<1.2) APTT (22.0-30.0) sec Sodium (137-145) mmol/L Potassium (3.5-5.1) mmol/L Chloride (98-107) mmol/L Carbon Dioxide (22-30) mmol/L Anion Gap mmol/L BUN (9-20) mg/dL Creatinine (0.66-1.25) mg/dL Est GFR (CKD-EPI)AfAm (>60 ml/min/1.73 sqM) Est GFR (CKD-EPI)NonAf (>60 ml/min/1.73 sqM) Glucose (74-99) mg/dL Calcium (8.4-10.2) mg/dL Total Bilirubin (0.2-1.3) mg/dL AST (17-59) U/L ALT (4-49) U/L Alkaline Phosphatase (38-126) U/L Creatine Kinase (55-170) U/L Troponin I <0.012 (0.000-0.034) ng/mL Total Protein (6.3-8.2) g/dL Albumin (3.5-5.0) g/dL Disposition Clinical Impression: Cerebrovascular accident (CVA), Chest pain Disposition: ADMITTED IP TO THIS [facility] Referrals: Martina Chiu MD [Primary Care Provider] - 1-2 days Time of Disposition: 13:27
[2024-06-21 11:11] LABS: Basophils % (A) 0 %; Eosinophils # (A) 0.1 k/uL (0-0.7); Eosinophils % (A) 2 %; HCT 48.3 % (39.0-53.0); HGB 16.1 gm/dL (13.0-17.5); Lymphocytes # (A) 1.2 k/uL (1.0-4.8); Lymphocytes % (A) 30 %; MCH 32.3 pg (25.0-35.0); MCHC 33.3 g/dL (31.0-37.0); Mean Platelet Volume 7.3; Monocytes # (A) 0.3 k/uL (0-1.0); Monocytes % (A) 8 %; Neutrophils # (A) 2.3 k/uL (1.3-7.7); Neutrophils % (A) 56 %; Platelet Count 217 k/uL (150-450); RBC 4.99 m/uL (4.30-5.90); WBC 4.1 k/uL (3.8-10.6)
[2024-06-21 11:24] LABS: INR 1.1 (<1.2); Partial Thromboplastin Time 23.2 sec (22.0-30.0); Prothrombin Time 11.6 sec (10.0-12.5)
--- NOTE | 2024-06-21 11:26 | CT ---
EXAMINATION TYPE: CODE STROKE: CT brain wo contr CT DLP: 1898.6 mGycm, Automated exposure control for dose reduction was used. DATE OF EXAM: 06/21/2024 11:17 AM COMPARISON: CT brain 08/07/2023, MRI brain 09/09/2023 CLINICAL INDICATION:Male, 58 years old with history of Neuro deficit, acute, stroke suspected, Neuro deficits, code stroke. Reported right-sided symptoms. TECHNIQUE: Brain: Multiple axial CT images of the brain were obtained without IV contrast. . Coronal and sagitta l reformats reviewed. FINDINGS: Brain: Extra-axial spaces: No abnormal extra-axial fluid collections. Ventricular system: Within normal limits Cerebral parenchyma: No acute intraparenchymal hemorrhage or mass effect. Region of low attenuation with loss of amaral-white differentiation within the anterior right inferior frontal lobe. The remainin g amaral-white junction is well differentiated. Cerebellum: Unremarkable. Mass effect: No evidence of midline shift. Intracranial vasculature: Atherosclerotic calcifications of the intracranial vessels. Soft tissues: Normal. Calvarium/osseous structures: No depressed skull fracture. Paranasal sinuses and mastoid air cells: Clear Visualized orbits: Orbital contents are intact. IMPRESSION: Region of low attenuation with loss of amaral-white differentiation within the anterior right inferior frontal lobe. This raises concern for acute/subacute ischemia versus artifact from adjacent bone inte rface. No evidence for intracranial hemorrhage. Consider further evaluation with MRI. Findings called to and discussed with Dr. Yoseph Resendiz at 11:23 AM on 06/21/2024. [facility], , 06/21/2024 11:24 AM
[2024-06-21] MEDS: SODIUM CHLORIDE 0.9% 500 ML 500 ML IV STA (11:33)
--- NOTE | 2024-06-21 11:46 | CT ---
EXAMINATION TYPE: CT angio head neck CT DLP: 512.1 mGycm, Automated exposure control for dose reduction was used. DATE OF EXAM: 06/21/2024 11:42 AM COMPARISON: CT brain 06/21/2024, 08/07/2023, MRI brain 08/30/2023, carotid ultrasound 08/29/2022, CTA head a nd Neck 08/14/2018. CLINICAL INDICATION:Male, 58 years old with history of Neuro deficit, acute, stroke suspected; [facility], c ode stroke TECHNIQUE: Axially acquired helical CT angiogram of the head and neck was obtained with contrast util izing 75 cc of Isovue-370 administered intravenously. Axial images are supplemented with 3D reconstru ctions which were post-processed at an independent workstation. NASCET criteria used. FINDINGS: CTA HEAD: No evidence of acute intracranial hemorrhage, mass effect, or midline shift. The ventricles, sulci, a nd cisterns are unremarkable. The visualized portions of the internal carotid arteries, middle cerebral arteries, anterior cerebral arteries, and posterior cerebral arteries are patent. The basilar and vertebral arteries are patent. CTA NECK: Right Carotid System: The common carotid artery and external carotid artery are patent. The carotid bifurcation demonstrate s no evidence of hemodynamically significant stenosis. The remaining portions of the internal carotid artery demonstrate normal size without significant narrowing. Left Carotid System: The common carotid artery and external carotid artery are patent. The carotid bifurcation demonstrate s no evidence of hemodynamically significant stenosis. The remaining portions of the internal carotid artery demonstrate normal size without significant narrowing. Vertebral arteries are patent without evidence hemodynamically significant stenosis. There is a three-vessel aortic arch. The origins of the great vessels are patent. No evidence of hemo dynamically significant stenosis. IMPRESSION: 1. No evidence of dissection of the cervical internal carotid arteries or vertebral arteries or any e vidence of significant stenosis at the carotid bifurcations. 2. No evidence of high-grade stenosis or intracranial aneurysm. [facility], , 06/21/2024 11:44 AM
[2024-06-21 11:47] LABS: ALT 22 U/L (4-49); AST 21 U/L (17-59); African American GFR (CKD) >90 (>60 ml/min/1.73 sqM); Albumin 4.5 g/dL (3.5-5.0); Alkaline Phosphatase 61 U/L (38-126); Anion Gap 8 mmol/L; Blood Urea Nitrogen 18 mg/dL (9-20); Calcium 9.1 mg/dL (8.4-10.2); Carbon Dioxide 27 mmol/L (22-30); Chloride 104 mmol/L (98-107); Creatine Kinase 83 U/L (55-170); Glucose 87 mg/dL (74-99); Non-African American GFR(CKD) >90 (>60 ml/min/1.73 sqM); Potassium 4.2 mmol/L (3.5-5.1); Sodium 139 mmol/L (137-145); Total Bilirubin 0.9 mg/dL (0.2-1.3)
--- NOTE | 2024-06-21 11:54 | CT ---
EXAMINATION TYPE: CT angio thor/abd pel aorta CT DLP: 1468.5 mGycm, Automated exposure control for dose reduction was used. DATE OF EXAM: 06/21/2024 11:33 AM COMPARISON: No direct comparisons. CLINICAL INDICATION:Male, 58 years old with history of Chest pain and neurosymptoms; PHH, chest pain TECHNIQUE: Dissection protocol: Multiple axial CT images of the chest, abdomen, and pelvis were obtai brandt prior and to the administration of IV contrast. 3-D reformats and maximum intensity projection fo rmat were performed on a separate workstation. Then the abdomen was scanned after administration of 1 00 cc of Isovue 370 IV contrast. FINDINGS: ARTERIAL VASCULATURE: The aorta is normal in course and caliber. No atherosclerotic plaque identified . There is no evidence of aortic dissection, aneurysm or acute aortic injury. Great arch vessels yan nt and normal in course and caliber. The celiac axis, SMA, bilateral single renal arteries, and ABI a re widely patent. The bilateral common iliac arteries, bilateral internal and external iliac arteries are widely patent. The bilateral common femoral arteries are widely patent. The bilateral visualized superficial and deep femoral arteries are widely patent. PULMONARY ARTERIAL VASCULATURE: Normal caliber. No evidence of filling defect to suggest pulmonary em bolus. Lungs/pleura: No pleural effusion, pneumothorax, focal consolidation. Minimal bilateral lower lobe garnett bsegmental atelectasis. Couple of calcified granulomas. Minimal biapical pleural parenchymal scarring . Reticular nodular opacity within the lower aspect of the right upper lobe. Punctate nodule along th e right minor fissure. Heart: Within normal limits. Atrial septal occlusion device identified. Mediastinum: No evidence of adenopathy. Lower Neck: No significant findings. Abdomen: Liver: Unremarkable. Gallbladder and Bile ducts: Unremarkable. Pancreas: Unremarkable. Spleen: Upper limits of normal for size. Adrenal glands: Unremarkable. Kidneys and Ureters: Unremarkable. No hydronephrosis. Contrast is demonstrated within both collecting systems and the ureters without filling defect on postcontrast imaging. Stomach and Bowel: Small hiatal hernia. Extensive distal colonic diverticulosis without evidence for acute diverticulitis. The appendix is within normal limits. No evidence of bowel obstruction. Peritoneum: No evidence of pneumoperitoneum, free fluid, or adenopathy. Bladder: Unremarkable. Contrast is demonstrated within the urinary bladder on postcontrast imaging. Reproductive: Central prostate calcifications mildly enlarged prostate gland measuring 5.1 cm in fitzgerald sverse dimension.. Abdominal wall/soft tissues: Unremarkable. Musculoskeletal: The osseous structures appear intact. IMPRESSION: 1. No evidence for aortic dissection. No significant atherosclerotic disease of the aorta and its bra nches. 2. Minimal reticular nodular opacity within the right upper lobe suggests an infectious/inflammatory bronchiolitis. 3. Colonic diverticulosis without evidence for acute diverticulitis. 4. Small hiatal hernia. [facility], , 06/21/2024 11:52 AM
--- NOTE | 2024-06-21 12:24 | XR ---
EXAMINATION TYPE: XR chest 2V DATE OF EXAM: 06/21/2024 12:19 PM COMPARISON: Chest radiographs from 08/07/2023, CTA thoracoabdominal pelvis aorta 06/21/2024 TECHNIQUE: XR chest 2V Frontal and lateral views of the chest. CLINICAL INDICATION:Male, 58 years old with history of altered mental status; FINDINGS: Lungs/Pleura: There is no evidence of pleural effusion, focal consolidation, or pneumothorax. Pulmonary vascularity: Unremarkable. Heart/mediastinum: Cardiomediastinal silhouette is unremarkable. Atrial septal closure device. Musculoskeletal: No acute osseous pathology. IMPRESSION: No acute cardiopulmonary disease/process. [facility], , 06/21/2024 12:22 PM
[2024-06-21] MEDS: ASPIRIN 325 MG TAB PO STA (14:08)
[2024-06-21] MEDS ORDERED: ACETAMINOPHEN TAB 325 MG TAB PO PRN (16:45)
--- NOTE | 2024-06-21 16:49 | P.HPIM ---
History of Present Illness H&P Date: 06/21/24 History of present illness: This is a 58-year-old male patient with past medical history significant for CVA/TIA, hypertension, hyperlipidemia, history of PFO s/p repair who presented to ER with a complaint of right-sided facial drooping, numbness, difficulty speaking and right arm numbness. Patient reported that he woke up around 930 and noticed that the right side of the his face was droopy, patient also was noted to have some difficulty speaking and also complained of right hand weakness and numbness. Patient denied any history of atrial fibrillation, not on anticoagulation, patient reported that he takes baby aspirin and statin. Patient also reported that he had some left-sided chest discomfort which has now resolved. Patient denied any fever, chills, sore throat, productive cough, palpitations, nausea vomiting diarrhea constipation abdominal pain dysuria urgency frequency. In the ED patient was afebrile, heart rate 62, respiratory rate 18, blood pressure 121/77, saturating 99% on room air. CBC and CMP unremarkable. Troponin negative x 2. EKG negative for acute changes CT head showed region of low-attenuation with loss of amaral-white differentiation within the anterior right inferior frontal lobe concerning for acute/subacute ischemia versus artifact. CT angio showed no evidence of dissection of cervical internal carotid arteries or vertebral arteries or any evidence of significant stenosis, no evidence of high-grade stenosis of intracranial aneurysm CT chest negative for any acute process, showed minimal reticulonodular opacities in the right upper lobe suggesting infectious/inflammatory bronchiolitis, small hiatal hernia. Assessment and plan: Stroke symptoms: History of CVA/TIA: History of PFO status post closure: Presented with right facial droop, numbness, difficulty word finding, right hand numbness. CT head showed region of low-attenuation with loss of amaral-white differentiation within the anterior right inferior frontal lobe concerning for acute/subacute ischemia versus artifact. CT angio showed no evidence of dissection of cervical internal carotid arteries or vertebral arteries or any evidence of significant stenosis, no evidence of high-grade stenosis of intracranial aneurysm CT chest negative for any acute process, showed minimal reticulonodular opacities in the right upper lobe suggesting infectious/inflammatory bronchiolitis, small hiatal hernia. 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 Telemetry Aspirin, statin Permissive hypertension MRI brain Neurology consult Chest pain: Reported chest discomfort on presentation EKG and troponin negative Cardiology consult. DVT prophylaxis Subcutaneous heparin Monitor vital signs and labs Labs and medication were reviewed. Continue same treatment. Further recommendations as per clinical course of the patient PHYSICAL EXAMINATION: GENERAL: The patient is A&O x3, NAD HEENT: EOMI, Sclerae anicteric, Moist Mucous membranes Neck: Supple, Non tender, No JVD PULMONARY: Equal breath souds B/L, No wheezing, No crackles. CARDIOVASCULAR: S1, S2 present. No murmurs, rubs, or gallops. ABDOMEN: Soft, nontender, nondistended, normoactive bowel sounds. No guarding or rebound tenderness. MUSCULOSKELETAL: No edema, No cyanosis. No clubbing. Normal ROM. Intact peripheral pulses. NEUROLOGICAL: CN 2-12 grossly intact. No FND REVIEW OF SYSTEMS: CONSTITUTIONAL: No fever, no malaise, no fatigue. HEENT: No recent visual problems or hearing problems. Denied any sore throat. CARDIOVASCULAR: No chest pain, orthopnea, PND, no palpitations, no syncope. PULMONARY: No shortness of breath, no cough, no hemoptysis. GASTROINTESTINAL: No diarrhea, no nausea, no vomiting, no abdominal pain. NEUROLOGICAL: No headaches, no weakness, no numbness. HEMATOLOGICAL: Denies any bleeding or petechiae. GENITOURINARY: Denies any burning micturition, frequency, or urgency. MUSCULOSKELETAL/RHEUMATOLOGICAL: Denies any joint pain, swelling, or any muscle pain. ENDOCRINE: Denies any polyuria or polydipsia. The rest of the 14-point review of systems is negative. Dictation was produced using [employer] software. please excuse any grammatical, word or spelling errors. Past Medical History Past Medical History: CVA/TIA, Hyperlipidemia Additional Past Medical History / Comment(s): "HOLE IN HEART". TIA X2 History of Any Multi-Drug Resistant Organisms: None Reported Past Surgical History: Hernia Repair, Orthopedic Surgery Additional Past Surgical History / Comment(s): Colonoscopy, bilateral knee arthroscopy, left knee ACL repair Past Anesthesia/Blood Transfusion Reactions: Postoperative Nausea & Vomiting (PONV) Past Psychological History: No Psychological Hx Reported Smoking Status: Never smoker Past Alcohol Use History: None Reported Past Drug Use History: None Reported - Past Family History Mother Family Medical History: No Reported History Father Additional Family Medical History / Comment(s): "heart issues" Brother(s) Additional Family Medical History / Comment(s): "heart issues" Medications and Allergies Home Medications Medication Instructions Recorded Confirmed Type Atorvastatin [Lipitor] 40 mg PO DAILY 09/29/22 06/21/24 History Aspirin 81 mg PO DAILY #90 tab 12/23/22 06/21/24 Rx Allergies Allergy/AdvReac Type Severity Reaction Status Date / Time corn Allergy Severe Swelling Verified 06/21/24 11:34 THROAT peanut Allergy Severe Swelling Verified 06/21/24 11:34 THROAT soy Allergy Unknown Verified 06/21/24 11:34 Physical Exam Vitals: Vital Signs Temp Pulse Resp BP Pulse Ox 06/21/24 14:47 62 18 121/77 99 06/21/24 11:36 139/86 06/21/24 11:29 54 L 20 98 06/21/24 10:59 57 L 20 141/96 95 06/21/24 10:46 97.5 F L 59 L 18 155/89 99 Intake and Output 06/21/24 06/21/24 06/21/24 06:59 14:59 22:59 Other: Weight 80.739 kg Results CBC & Chem 7: 06/21/24 10:50 06/21/24 10:50
[2024-06-21] MEDS: ENOXAPARIN 40 MG/0.4 ML SYRINGE SQ SCH (17:43)
[2024-06-21] MEDS: ATORVASTATIN 40 MG TAB PO SCH (20:43)
[2024-06-22] MEDS: ASPIRIN 325 MG TAB PO SCH (09:46)
[2024-06-22 11:52] LABS: Chol/HDL Ratio 5.75 Ratio
--- NOTE | 2024-06-22 12:26 | P.CRDCN ---
History of Present Illness Consult date: 06/22/24 Consult reason: chest pain History of present illness: This is a 66-year-old male patient of Dr. Ramos with past medical history of TIA with patent foramen ovale status post percutaneous closure. We have been asked to evaluate the patient for chest pain. Patient woke up in the morning around 9:00 and found that of the right side of his face was droopy with decreased sensation to the right side of his face and right handed weakness. About half hour before he arrived to the emergency center he developed left-sided chest discomfort. No radiation of the pain at that time. Patient states that for years he has had episodes of numbness to his right face that comes and goes. Yesterday, he states he woke up and his right face was swollen. His speech was slurred and his noticed a change in the right side of his face. He states he had an episode in the past where he had same symptoms for 3 days in a row. He also experiences right sided headache. Patient states when he raised his arms to get his x-ray of his chest done, he developed pain in his chest that went across the upper chest area. Blood pressure 110/73, heart rate 48, pulse ox 96% on room air. Patient is status post half liter of IV fluid bolus. He is seen today in the emergency center waiting for a bed on the cardiac stepdown unit. Patient is a non-smoker. No history of diabetes. Neurology has been consulted and MRI of the brain is pending. Discussed with patient that the symptoms are not related to PFO as it is functioning normally on the recent echocardiogram. Other etiologies from a neurological perspective will need to be evaluated. -EKG: Sinus rhythm with nonspecific ST changes. -Chest x-ray: No acute process -CT brain: Low-attenuation with loss of amaral-white differentiation within the anterior right inferior frontal lobe. Raises concern for acute or subacute ischemia versus artifact. -CT angio of the head and neck: No evidence of dissection of the cervical internal carotid arteries or vertebral arteries or any evidence of stenosis at the carotid bifurcations. No evidence of high-grade stenosis or intracranial aneurysm. -CTA thoracic abdominal and pelvic aorta: No aortic dissection. No significant atherosclerotic disease of the aorta and its branches. Minimal reticular nodular opacity within the right upper lobe suggests infectious inflammatory bronchiolitis. Colonic diverticulosis. Small hiatal hernia. -Laboratory studies: CBC INR CMP all within normal limits. Troponin negative x 3. -Home cardiac medications: Aspirin 81 mg daily, atorvastatin 40 mg daily. -Echocardiogram performed 06/09/2024 revealed EF of 55 to 60%. PFO/ASD percutaneous closure device present. Trace aortic regurgitation. Mild mitral regurgitation. Mild tricuspid regurgitation. PASP 43 mmHg. Physiologic pulmonic regurgitation. Review Of Systems: At the time of my exam: CONSTITUTIONAL: Denies fever or chills. HEENT: Denies blurred vision, vision changes, or eye pain. Denies hemoptysis CARDIOVASCULAR: Denies chest pain. Denies orthopnea. Denies PND. Denies palpitations RESPIRATORY: Denies shortness of breath. GASTROINTESTINAL: Denies abdominal pain. Denies nausea or vomiting. HEMATOLOGIC: Denies bleeding disorders. GENITOURINARY: Denies any blood in urine. SKIN: Denies puritis. Denies rash. Physical examination: Gen: This is a 58-year-old male in no acute distress VS: reviewed HEENT: Head is atraumatic, normocephalic. Pupils equal, round. Sclerae is anicteric. NECK: Supple. No JVD. LUNGS: Clear to auscultation. No wheezes or rhonchi. No intercostal retractions. HEART: Regular rate and rhythm. No murmur. ABDOMEN: Soft No tenderness. EXTREMITIES: No pedal edema. No calf tenderness. NEUROLOGICAL: Patient is awake, alert and oriented x3. Assessment: CVA Atypical chest pain, acute coronary syndrome ruled out History of TIA History of patent foramen ovale status post percutaneous closure 12/22/2022 Plan: Resume patient's home cardiac medications No need to repeat echocardiogram as this was performed 2 weeks ago in the office No further cardiac workup at this time Cardiology will sign off this case and follow on an as-needed basis. Please reconsult for any new concerns. Patient may follow-up in the office in one to 2 weeks. Thank you kindly for this consultation. Nurse practitioner note has been reviewed, I agree with documented findings and plan of care. Patient was seen and examined. Past Medical History Past Medical History: CVA/TIA, Hyperlipidemia Additional Past Medical History / Comment(s): "HOLE IN HEART". TIA X2 History of Any Multi-Drug Resistant Organisms: None Reported Past Surgical History: Hernia Repair, Orthopedic Surgery Additional Past Surgical History / Comment(s): Colonoscopy, bilateral knee arthroscopy, left knee ACL repair Past Anesthesia/Blood Transfusion Reactions: Postoperative Nausea & Vomiting (PONV) Past Psychological History: No Psychological Hx Reported Smoking Status: Never smoker Past Alcohol Use History: None Reported Past Drug Use History: None Reported - Past Family History Mother Family Medical History: No Reported History Father Additional Family Medical History / Comment(s): "heart issues" Brother(s) Additional Family Medical History / Comment(s): "heart issues" Medications and Allergies Home Medications Medication Instructions Recorded Confirmed Type Atorvastatin [Lipitor] 40 mg PO DAILY 09/29/22 06/21/24 History Aspirin 81 mg PO DAILY #90 tab 12/23/22 06/21/24 Rx Allergies Allergy/AdvReac Type Severity Reaction Status Date / Time corn Allergy Severe Swelling Verified 06/21/24 11:34 THROAT peanut Allergy Severe Swelling Verified 06/21/24 11:34 THROAT soy Allergy Unknown Verified 06/21/24 11:34 Physical Exam Vitals: Vital Signs Temp Pulse Resp BP Pulse Ox 06/22/24 05:06 56 L 16 06/22/24 02:57 97.9 F 48 L 15 110/73 96 06/21/24 20:46 98.3 F 54 L 18 107/64 96 06/21/24 14:47 62 18 121/77 99 06/21/24 11:36 139/86 06/21/24 11:29 54 L 20 98 06/21/24 10:59 57 L 20 141/96 95 06/21/24 10:46 97.5 F L 59 L 18 155/89 99 Results 06/21/24 10:50 06/21/24 10:50 Cardiac Enzymes 06/21/24 06/21/24 06/21/24 Range/Units 10:50 10:50 14:21 AST 21 (17-59) U/L Troponin I <0.012 <0.012 (0.000-0.034) ng/mL 06/21/24 Range/Units 17:42 AST (17-59) U/L Troponin I <0.012 (0.000-0.034) ng/mL Coagulation 06/21/24 Range/Units 10:50 PT 11.6 (10.0-12.5) sec APTT 23.2 (22.0-30.0) sec CBC 06/21/24 Range/Units 10:50 WBC 4.1 (3.8-10.6) k/uL RBC 4.99 (4.30-5.90) m/uL Hgb 16.1 (13.0-17.5) gm/dL Hct 48.3 (39.0-53.0) % Plt Count 217 (150-450) k/uL Comprehensive Metabolic Panel 06/21/24 Range/Units 10:50 Sodium 139 (137-145) mmol/L Potassium 4.2 (3.5-5.1) mmol/L Chloride 104 (98-107) mmol/L Carbon Dioxide 27 (22-30) mmol/L BUN 18 (9-20) mg/dL Creatinine 0.77 (0.66-1.25) mg/dL Glucose 87 (74-99) mg/dL Calcium 9.1 (8.4-10.2) mg/dL AST 21 (17-59) U/L ALT 22 (4-49) U/L Alkaline Phosphatase 61 (38-126) U/L Total Protein 7.0 (6.3-8.2) g/dL Albumin 4.5 (3.5-5.0) g/dL Current Medications Generic Name Dose Route Start Last Admin Trade Name Freq PRN Reason Stop Dose Admin Acetaminophen 650 mg 06/21/24 16:45 Acetaminophen Tab 325 Mg Tab PO Q6HR PRN Mild Pain or Fever > 100.5 Aspirin 325 mg 06/22/24 09:00 Aspirin 325 Mg Tab PO DAILY [facility] Atorvastatin Calcium 40 mg 06/21/24 21:00 06/21/24 20:43 Atorvastatin 40 Mg Tab PO Not Given HS [facility] Enoxaparin Sodium 40 mg 06/21/24 17:00 06/21/24 17:43 Enoxaparin 40 Mg/0.4 Ml Syringe SQ 40 mg DAILY CORIE Administration 06/21/24 10:50 06/21/24 10:50
--- NOTE | 2024-06-22 13:32 | P.CNNES ---
History of Present Illness Consult date: 06/22/24 Requesting physician: Rolf Resendiz Reason for Consult: CVA History of Present Illness: Patient is a 58-year-old right-handed male, with history of TIAs, PFO closure, came to the hospital yesterday at 10:45 AM, for another possible TIA. Patient's was also present by the bedside, and both of them provided with a history. Yesterday he woke up at 8:30 in the morning and was feeling fine. At around 9 AM, he came out of the living room and when he tried to speak to his , he was not able to form words, could not speak right was having speech difficulty. His noticed some facial droop, as if there was a cotton in the mouth. Patient himself noticed right facial droopiness, and right facial numbness. There were no other symptoms like visual disturbance, numbness or tingling involving the extremities or weakness or balance issues or dizziness. As the symptoms persisted, he decided to come to the ER. Vital signs on arrival blood pressure 155/89 pulse rate 59 temperature 97.5. Blood test shows normal CBC, PT PTT, normal CMP. Troponin negative. EKG showed sinus bradycardia. CT head showed region of low-attenuation with loss of amaral- white differentiation within the anterior right inferior frontal lobe. This raises concern for acute/subacute ischemia versus artifact from adjacent bone interface. No evidence for intracranial hemorrhage. I personally reviewed CT head, and it is very questionable abnormality. CT of the thoracic aorta showed no evidence for aortic dissection. Minimal reticular nodular opacity within the right upper lobe suggests an infectious/inflammatory bronchiolitis. Colonic diverticulosis without evidence for acute diverticulitis. Small hiatal hernia. Chest x-ray showed no acute cardiopulmonary process. Patient had an MRI of the brain on 08/30/2023 which revealed minimal nonspecific white matter changes, can be associated with hypertension or remote subacute white matter change. Patient has history of recurrent TIAs, and was found to have PFO. He underwent PFO closure about a year ago. He was doing well until yesterday as mentioned. Patient denies any history of hypertension or diabetes, never smoked, does not drink alcohol, no marijuana. He does have hyperlipidemia. Home medication include aspirin 81 mg and Lipitor 40 mg. Patient's [id number] , therefore he has been under stress and stopped taking both of his medications about 2 weeks ago. Review of Systems All pertinent positive and negative review of systems mentioned HPI, otherwise unremarkable. Past Medical History Past Medical History: CVA/TIA, Hyperlipidemia Additional Past Medical History / Comment(s): "HOLE IN HEART". TIA X2 History of Any Multi-Drug Resistant Organisms: None Reported Past Surgical History: Hernia Repair, Orthopedic Surgery Additional Past Surgical History / Comment(s): Colonoscopy, bilateral knee arthroscopy, left knee ACL repair Past Anesthesia/Blood Transfusion Reactions: Postoperative Nausea & Vomiting (PONV) Past Psychological History: No Psychological Hx Reported Smoking Status: Never smoker Past Alcohol Use History: None Reported Past Drug Use History: None Reported - Past Family History Mother Family Medical History: No Reported History Father Additional Family Medical History / Comment(s): "heart issues" Brother(s) Additional Family Medical History / Comment(s): "heart issues" Medications and Allergies Home Medications Medication Instructions Recorded Confirmed Type Atorvastatin [Lipitor] 40 mg PO DAILY 09/29/22 06/21/24 History Aspirin 81 mg PO DAILY #90 tab 12/23/22 06/21/24 Rx Allergies Allergy/AdvReac Type Severity Reaction Status Date / Time corn Allergy Severe Swelling Verified 06/21/24 11:34 THROAT peanut Allergy Severe Swelling Verified 06/21/24 11:34 THROAT soy Allergy Unknown Verified 06/21/24 11:34 Physical Examination - Vital Signs Vital Signs: Vital Signs Temp Pulse Pulse Resp BP BP Pulse Ox 06/22/24 11:12 57 L 18 137/92 98 06/22/24 08:00 97.7 F 18 117/67 97 06/22/24 05:06 56 L 16 06/22/24 02:57 97.9 F 48 L 15 110/73 96 06/21/24 20:46 98.3 F 54 L 18 107/64 96 06/21/24 14:47 62 18 121/77 99 Intake and Output 06/21/24 06/22/24 06/22/24 22:59 06:59 14:59 Other: Weight 80.739 kg Patient is a late middle-aged male, in no acute distress. Patient is fully dressed including his shoes almost as if he is a visitor. Patient is alert awake oriented to time place and person. Speech and language functions are normal. Patient can name and repeat very well. No aphasia or dysarthria. Attention, concentration and fund of knowledge is adequate. On cranial nerve examination, pupils are equal, round and reacting to light, visual sheehan are full on confrontation, with no neglect on double simultaneous stimulation. Extraocular muscles are intact with no nystagmus. Patient has very subtle right facial asymmetry. His tongue protrudes to the midline. Palatal elevation and sensation normal, hearing and shoulder shrug normal, facial sensation normal. On muscle strength testing, there is no pronator drift and the strength is normal in arms and legs distally and proximally. Deep tendon reflexes are symmetric 1 in the upper limbs at biceps and brachioradialis, 2 at the knees and ankles and plantars downgoing. Sensory to touch is equal with no neglect on double simultaneous stimulation. Cerebellar function showed no ataxia for [id number] testing. No dysdiadochokinesia. No ataxia for [id number] testing on either side. Tone an d bulk of muscles normal. Gait is normal. On general examination, there is no carotid bruit or murmur, S1-S2 audible. Chest is clear on consultation. Abdomen is soft nontender. No organomegaly, b owel sounds present. Peripheral pulses are present. No peripheral edema. Results - Laboratory Findings CBC and BMP: 06/21/24 10:50 06/21/24 10:50 Assessment and Plan Assessment: * Possible TIA manifesting with speech difficulty and right facial droop. Symptoms have mostly resolved. Patient has been off his aspirin and Lipitor for last 2 weeks, which may have resulted in possible TIA. * History of TIA * History of PFO, status post closure 1 year ago. * Hyperlipidemia Plan: Patient undergoing MRI of the brain without contrast, evaluate for acute CVA 2-D echo with bubble study to rule out PFO CTA head and neck showed: No evidence of dissection of the cervical internal carotid arteries or vertebral arteries or any evidence of significant stenosis at the carotid bifurcations. No evidence of high-grade stenosis or intracranial aneurysm. Fasting a.m. lipid panel, with cholesterol 246, LDL 181, HDL 22, triglycerides 111. Patient on Lipitor 40 mg daily. Patient has been off Lipitor for last 2 weeks, that may be the cause of elevated LDL. We will resume Lipitor 40 mg daily. Target LDL <70. Hemoglobin A1c Optimize control of blood pressure. Resume aspirin. Patient has been off aspirin for last 2 weeks. We will give dual antiplatelet therapy for 21 days and then stop Plavix and continue aspirin indefinitely. Neuro checks every 4 hours Telemetry monitoring rule out any arrhythmia PT, OT, speech therapy DVT prophylaxis: Patient on Lovenox 40 mg subcu daily Neurology will continue to follow. Thank you for the consult.
--- NOTE | 2024-06-22 13:55 | P.PN ---
Subjective Progress Note Date: 06/22/24 Interval History: History of present illness: This is a 58-year-old male patient with past medical history significant for CVA/TIA, hypertension, hyperlipidemia, history of PFO s/p repair who presented to ER with a complaint of right-sided facial drooping, numbness, difficulty speaking and right arm numbness. Patient reported that he woke up around 930 and noticed that the right side of the his face was droopy, patient also was noted to have some difficulty speaking and also complained of right hand w eakness and numbness. Patient denied any history of atrial fibrillation, not on anticoagulation, patient reported that he takes baby aspirin and statin. Patient also reported that he had some left-sided chest discomfort which has now resolved. Patient denied any fever, chills, sore throat, productive cough, palpitations, nausea vomiting diarrhea constipation abdominal pain dysuria urgency frequency. In the ED patient was afebrile, heart rate 62, respiratory rate 18, blood pressure 121/77, saturating 99% on room air. CBC and CMP unremarkable. Troponin negative x 2. EKG negative for acute changes CT head showed region of low-attenuation with loss of amaral-white differentiation within the anterior right inferior frontal lobe concerning for acute/subacute ischemia versus artifact. CT angio showed no evidence of dissection of cervical internal carotid arteries or vertebral arteries or any evidence of significant stenosis, no evidence of high-grade stenosis of intracranial aneurysm CT chest negative for any acute process, showed minimal reticulonodular opacities in the right upper lobe suggesting infectious/inflammatory bronchiolitis, small hiatal hernia. 06/22--patient was seen and examined today. Vital stable. Symptoms remain resolved. Cardiology evaluated the patient, no need to repeat echo, atypical chest pain, recommended outpatient follow-up. Neurology recommended echo with bubble study, MRI. Assessment and plan: Stroke symptoms: History of CVA/TIA: History of PFO status post closure: 12/2022 Presented with right facial droop, numbness, difficulty word finding, right hand numbness. CT head showed region of low-attenuation with loss of amaral-white differentiation within the anterior right inferior frontal lobe concerning for acute/subacute ischemia versus artifact. CT angio showed no evidence of dissection of cervical internal carotid arteries or vertebral arteries or any evidence of significant stenosis, no evidence of high-grade stenosis of intracranial aneurysm CT chest negative for any acute process, showed minimal reticulonodular opacities in the right upper lobe suggesting infectious/inflammatory bronchiolitis, small hiatal hernia. Monitor with neurochecks PT/OT/S[employer] ARCHITECT. Telemetry Aspirin, statin Permissive hypertension MRI brain Neurology consult--recommended aspirin, Plavix for 21 days, echocardiogram with bubble study, MRI. Chest pain: Atypical Reported chest discomfort on presentation EKG and troponin negative Cardiology consulted--recommended continue home medications, outpatient follow-up. Per cardiology no need to repeat echocardiogram, recent echocardiogram 06/09/2024 showed EF 55 to 60%, PFO/ASD percutaneous closure device present PASP 43. DVT prophylaxis Subcutaneous Lovenox Monitor vital signs and labs Labs and medication were reviewed. Continue same treatment. Further recommendations as per clinical course of the patient PHYSICAL EXAMINATION: GENERAL: The patient is A&O x3, NAD HEENT: EOMI, Sclerae anicteric, Moist Mucous membranes Neck: Supple, Non tender, No JVD PULMONARY: Equal breath souds B/L, No wheezing, No crackles. CARDIOVASCULAR: S1, S2 present. No murmurs, rubs, or gallops. ABDOMEN: Soft, nontender, nondistended, normoactive bowel sounds. No guarding or rebound tenderness. MUSCULOSKELETAL: No edema, No cyanosis. No clubbing. Normal ROM. Intact peripheral pulses. NEUROLOGICAL: CN 2-12 grossly intact. No FND Skin: No Rash REVIEW OF SYSTEMS: CONSTITUTIONAL: No fever or chills. CARDIOVASCULAR: No chest pain, palpitations or syncope. PULMONARY: No shortness of breath, no cough, sore throat. GASTROINTESTINAL: No nausea, vomiting, diarrhea, abdominal pain. : No Dysuria, urgency, frequency. Extremities: No edema. NEUROLOGICAL: No headaches, no weakness, or numbness Dictation was produced using dot[employer] dictation software. please excuse any grammatical, word or spelling errors. Objective - Vital Signs Vital signs: Vital Signs Temp 97.7 F 06/22/24 08:00 Pulse 57 L 06/22/24 11:12 Resp 18 06/22/24 11:12 BP 137/92 06/22/24 11:12 Pulse Ox 98 06/22/24 11:12 FiO2 Intake & Output 06/21/24 06/22/24 06/22/24 18:59 06:59 18:59 Weight 80.739 kg 80.739 kg - Labs CBC & Chem 7: 06/21/24 10:50 06/21/24 10:50 Labs: Abnormal Lab Results - Last 24 Hours (Table) 06/21/24 Range/Units 10:50 Cholesterol 246.00 H (0.00-200.00) mg/dL LDL Cholesterol, Calc 181.0 H (0.0-131.0) mg/dL
[2024-06-22] MEDS: CLOPIDOGREL 75 MG TAB PO SCH (15:46)
--- NOTE | 2024-06-23 14:33 | CT ---
EXAMINATION TYPE: CT brain wo con DATE OF EXAM: 06/23/2024 2:19 PM COMPARISON: 06/21/2024 08/30/2023. CLINICAL INDICATION: Male, 58 years old with history of Repeat to evaluate for CVA, Repeat to evaluat e for CVA, neurological deficit. 06/21/2024 08/30/2023 TECHNIQUE: Brain: Axial CT images of the brain were obtained with coronal and sagittal reformats created and rev iewed. Contrast used: None. Oral contrast used: None. CT DLP: 1197.4 mGycm, Automated exposure control for dose reduction was used. FINDINGS: Brain: Extra-axial spaces: No abnormal extra-axial fluid collections. Ventricular system: Within normal limits Cerebral parenchyma: No acute intraparenchymal hemorrhage or mass effect. The amaral-white junction is well differentiated. Cerebellum: Unremarkable. Mass effect: No evidence of midline shift. Intracranial vasculature: Atherosclerotic calcifications of the intracranial vessels. Soft tissues: Normal. Calvarium/osseous structures: No depressed skull fracture. Paranasal sinuses and mastoid air cells: Mild scattered paranasal sinus disease. Visualized orbits: Orbital contents are intact. IMPRESSION: No acute intracranial process. [facility], , 06/23/2024 2:31 PM
--- NOTE | 2024-06-23 17:29 | CA ---
Transthoracic Echo Report Name: Albert Yarbrough Age: 58 Gender: M : 1965 Exam Date: 06/23/2024 07:38 Exam Location: [facility] Ht (in): 68 Wt (lb): 178 Ordering Physician: Monica Forbes MD Attending/Referring Phys: Electrical Engineering Director Omid Tran RDCS Procedure CPT: Indications: tia Cardiac Hx: PFO closure, CVA Technical Quality: Good Contrast 1: Total Dose (mL): Contrast 2: Total Dose (mL): MEASUREMENTS (Male / Female) Normal Values 2D ECHO LV Diastolic Diameter PLAX 4.9 cm 4.2 - 5.9 / 3.9 - 5.3 cm LV Systolic Diameter PLAX 3.2 cm IVS Diastolic Thickness 0.8 cm 0.6 - 1.0 / 0.6 - 0.9 cm LVPW Diastolic Thickness 0.8 cm 0.6 - 1.0 / 0.6 - 0.9 cm LV Relative Wall Thickness 0.3 RV Internal Dim ED PLAX 3.4 cm LVOT Diameter 2.1 cm LA Systolic Diameter LX 3.8 cm 3.0 - 4.0 / 2.7 - 3.8 cm LV Diastolic Volume MOD BP 117.9 cm??? 67 - 155 / 56 - 104 cm??? LV Systolic Volume MOD BP 48.1 cm??? - 58 / 19 - 49 cm??? LV Ejection Fraction MOD BP 59.2 % >= 55 % LV Cardiac Index MOD BP 2039.3 cm???/min???m??? LV Diastolic Volume MOD 4C 118.2 cm??? LV Systolic Volume MOD 4C 53.3 cm??? LV Ejection Fraction MOD 4C 54.9 % LV Cardiac Index MOD 4C 1895.7 cm???/min???m??? LV Diastolic Length 4C 9.0 cm LV Systolic Length 4C 7.2 cm LV Diastolic Volume MOD 2C 109.8 cm??? LV Systolic Volume MOD 2C 41.5 cm??? LV Ejection Fraction MOD 2C 62.2 % LV Cardiac Index MOD 2C 1995.2 cm???/min???m??? LV Diastolic Length 2C 8.4 cm LV Systolic Length 2C 6.8 cm LA Volume 61.2 cm??? - 58 / 22 - 52 cm??? LA Volume Index 30.9 cm???/m??? 16 - 28 cm???/m??? DOPPLER MV Area PHT 2.6 cm??? Mitral E Point Velocity 62.1 cm/s Mitral A Point Velocity 88.5 cm/s Mitral E to A Ratio 0.7 MV Deceleration Time 287.8 ms TR Peak Velocity 211.2 cm/s TR Peak Gradient 17.8 mmHg FINDINGS Left Ventricle Left ventricular ejection fraction is estimated at 55-60 %. Normal left ventricular systolic function with no obvious regional wall motion abnormalities.left ventricular cavity size normal. Right Ventricle Moderate right ventricular dilatation. Right ventricular systolic pressure within normal limits. Right Atrium Normal right atrial size. PFO closure device in place, no shunt noteid. Left Atrium Mildly increased left atrial volume. Mildly increased left atrial area. Mitral Valve Structurally normal mitral valve. . No mitral stenosis. Mild mitral regurgitation. Aortic Valve Trileaflet aortic valve. No aortic stenosis. No aortic regurgitation. Tricuspid Valve Structurally normal tricuspid valve. No tricuspid stenosis. Mild tricuspid regurgitation. Pulmonic Valve Structurally normal pulmonic valve. No pulmonic stenosis. Trace pulmonic regurgitation. Pericardium No pericardial effusion. Aorta Normal size aortic root and proximal ascending aorta. CONCLUSIONS 1. Normal left ventricular size and systolic function 2. Mild mitral and tricuspid regurgitation 3. No evidence of shunting across the intra-atrial septum. Closure device noted. Previewed by: Dr. Cristobal Gonzalez MD (Electronically Signed) Final Date: 23 June 2024 17:28
[2024-06-23] MEDS: ONDANSETRON ODT 4 MG TAB PO STA (18:56)
[2024-06-23] MEDS: diphenhydrAMINE 25 MG CAP PO STA (21:03)
[2024-06-23] MEDS: LOPERAMIDE 2 MG CAP PO STA (21:03)
[2024-06-23] MEDS ORDERED: LOPERAMIDE 2 MG CAP PO PRN (21:27)
[2024-06-23] MEDS: ONDANSETRON 4 MG/2 ML VIAL IVP PRN (21:59)
[2024-06-23] MEDS: diphenhydrAMINE 50 MG/ML 1 ML VIAL IVP PRN (21:59)
[2024-06-24 08:05] VITALS: BP 91/64; PULSE 88; RESP 17; TEMP 98.1
--- NOTE | 2024-06-24 11:02 | P.PN ---
Subjective Progress Note Date: 06/23/24 Patient was seen for a follow-up. Patient is sitting in the recliner, then walking around in the room. Offers no complaints. All symptoms resolved. Objective - Vital Signs Vital signs: Vital Signs Temp 98.1 F 06/24/24 07:45 Pulse 88 06/24/24 07:45 Resp 17 06/24/24 07:45 BP 91/64 06/24/24 07:45 Pulse Ox 98 06/24/24 07:45 FiO2 Intake & Output 06/23/24 06/24/24 06/24/24 18:59 06:59 18:59 Intake Total 480 Balance 480 Weight 78.8 kg Intake: Oral 480 Other: Voiding Method Toilet Toilet Toilet # Voids 1 2 # Bowel Movements 1 1 - Exam Patient's mental status, speech and language functions are normal. Gait normal. - Labs CBC & Chem 7: 06/21/24 10:50 06/21/24 10:50 Assessment and Plan Assessment: * Possible TIA manifesting with speech difficulty and right facial droop. Symptoms have mostly resolved. Patient has been off his aspirin and Lipitor for last 2 weeks, which may have resulted in possible TIA. * History of TIA * History of PFO, status post closure 1 year ago. * Hyperlipidemia Plan: Patient had a repeat CT head performed today, which revealed no acute intracranial process. I personally reviewed CT head, agree with the findings. The abnormality reported by the radiologist and the last CT head was likely an over-read. 2-D echo revealed LVEF 55 to 60%. No obvious regional wall motion abno rmalities. Left ventricular cavity size normal. Moderate right ventricular dilation. PFO closure device in place. No evidence of shunting across the intra-atrial septum. Mildly increased left atrial volume. Mild MR. Mild TR. CTA head and neck showed: No evidence of dissection of the cervical internal carotid arteries or vertebral arteries or any evidence of significant stenosis at the carotid bifurcations. No evidence of high-grade stenosis or intracranial aneurysm. Fasting a.m. lipid panel, with cholesterol 246, LDL 181, HDL 22, triglycerides 111. Patient on Lipitor 40 mg daily. Patient has been off Lipitor for last 2 weeks, that may be the cause of elevated LDL. We will resume Lipitor 40 mg daily. Target LDL <70. Patient's blood glucose has been completely normal in the hospital. Optimize control of blood pressure. Resume aspirin. Patient has been off aspirin for last 2 weeks. We will give dual antiplatelet therapy for 21 days and then stop Plavix and continue aspirin indefinitely. Telemetry monitoring rule out any arrhythmia Neurologically clear for discharge. Patient recommended not to stop medications in future.
== END 2024-06-24 08:05 | disposition home or self-care (01) | DRG 69 ==
LOC: EC 10:45 → 3SCARD 13:30
PROVIDERS: ADMIT Hospitalist; ATTEND Hospitalist
DX: G45.9 Transient cerebral ischemic attack, unspecified (principal); E78.5 Hyperlipidemia, unspecified; I10 Essential (primary) hypertension; R07.89 Other chest pain; R29.810 Facial weakness; R47.81 Slurred speech; R53.1 Weakness; Z79.82 Long term (current) use of aspirin; Z91.010 Allergy to peanuts; Z88.8 Allergy status to other drugs, medicaments and biological substances; Z91.018 Allergy to other foods; Z79.899 Other long term (current) drug therapy; Z87.74 Personal history of (corrected) congenital malformations of heart and circulatory system
CPT/HCPCS: 36415; 70450; 70496; 70498; 71046; 71275; 74174; 80053; 80061; 82550; 84484; 85025; 85610; 85730; 93005; 93306; 96361; 96372; 99291